=== PATIENT | female | born 1965 | race Caucasian/White ===

== ENCOUNTER 2017-08-04 18:27 | Emergency (ER) | payer MEDICARE, MEDICAID, SELFPAY ==
[2017-08-04 18:28] VITALS: BP 119/92; PULSE 74; RESP 18; TEMP 37.2; O2SAT 96; BMI 33.0
--- NOTE | 2017-08-04 18:58 | RAD_ITS ---
STUDY: X-RAY CHEST REASON FOR EXAM: Female, 51 years old. Cough TECHNIQUE: Single frontal view COMPARISON: July 09, 2017 FINDINGS: The lungs are expanded. There is mild left basilar atelectasis. Normal size heart. Normal mediastinum and ilda. Normal visualized pulmonary arteries. Normal visualized aortic arch and descending thoracic aorta. Normal visualized thoracic spine. Surgical fusion of lower cervical levels. Normal visualized ribs, clavicles, and shoulders. There is no demonstrated abnormality of the visualized soft tissue structures of the upper abdomen. RAD/Chest 1 View (Portable) IMPRESSION: Mild left basilar atelectasis. Electronically Signed: Rodney Castillo DO at 19:31 EST Tel [phone], Service support ,
--- NOTE | 2017-08-04 18:58 | EKG12_ITS ---
Test Reason : Blood Pressure : / mmHG Vent. Rate : 064 BPM Atrial Rate : 064 BPM P-R Int : 172 ms QRS Dur : 068 ms QT Int : 394 ms P-R-T Axes : 071 012 041 degrees QTc Int : 406 ms Normal sinus rhythm Low voltage QRS Borderline ECG Confirmed by EZEQUIEL LANDIS, ION ([id number]), editor magazine [employer] ([id number]) on 08/08/2017 3:13:20 PM Referred By: BENJAMIN Confirmed By:ION NIEVES MD
--- NOTE | 2017-08-04 19:09 | ED.VISSUMM ---
- ER Visit Summary Date of Service: 08/04/17 Chief Complaint: [] Seen at urgent care concern for pneumonia History of Present Illness: The patient is a 51 F [] the patient has a history of asthma, she was diagnosed with the flu and required admission for influenza related bronchospasm symptoms, she indicates this was a few weeks ago around [place], she never really recovered from the coughing and the wheezing. She was seen at a local urgent care center she was noted to have wheezing by a nurse practitioner who saw her and then she was sent to the emergency department for concern of pneumonia, the patient's cough has been productive of mucus for weeks, she has had no fevers she is able to eat and drink, she apparently ran out of her inhaler and was using her steroid inhaler not her rescue inhaler. She has no history of IA PE DVT she does have frequent flares of asthma when we are in the midst of flu epidemic as we are now Physical Examination: [] Vital signs are within normal range her pulse ox is 97% on room air she has a harsh dry cough here her nose is congested her throat is clear her lungs show diffuse wheezing heart tones are unremarkable abdomen soft nontender upper lower extremities unremarkable when she is not coughing clinically she looks well, again the cough here is nonproductive Test Results: [] Emergency Department Course and Treatment: [] Given her complaints evaluation, her labs are all unremarkable white count normal her pulse ox remained 97%, her chest x-ray per radiology shows very questionable subtle lingular finding that could be pneumonia versus atelectasis. On reevaluation she is much better now she is afebrile has a normal white count normal pulse ox she is really been coughing since June she has been on multiple different antibiotics. She feels better she wants to go home but she does not have an inhaler. I have given her a dose of MDI inhaler here, she will be discharged with that inhaler, she was given IV Solu-Medrol, she will be given Mucinex Levaquin and she will follow-up with her family doctors tomorrow the next and return for symptoms change and again she is feeling better and wants to go home and wants to be managed as an outpatient Treatment Plan: [] Disposition: [] Home stable Impression: [] Harsh cough for months possible lingular pneumonia This note was generated with [employer] dictation software. It may contain incorrect words, spelling, and punctuation that were not noted in review of the chart prior to signing ED Disposition - Plan for ED Patient: Chief Complaint: Shortness of Breath Referrals: Florecita Medrano MD [Primary Care Provider] -
[2017-08-04] MEDS: MethylPREDNISolone 125 MG/2 ML Vial IV (19:19)
[2017-08-04] MEDS: Acetaminophen/Codeine #3 Tablet 2 TABLET PO (19:19)
[2017-08-04] MEDS: Ipratropium/Albuterol Sulfate 3 ML AMPUL.NEB INHALATION (19:35)
[2017-08-04 19:39] VITALS: PULSE 75; RESP 16
[2017-08-04 19:40] LABS: Absolute Lymphocyte Count 2.43 X10^3/ul (0.83-4.51); Basophil# 0.01 X10^3/uL; Basophil% 0.1 % (0-1); Eosinophil# 0.23 X10^3/uL; Eosinophils% 3.2 % (0-5); Hematocrit 41.3 % (37-47); Hemoglobin 13.5 g/dl (12.0-15.0); Lymphocyte # 2.43 X10^3/ul (4.0); Lymphocyte % 33.7 % (19-41); Mean Corp Hgb Conc 32.7 g/gl (32-36); Mean Corpuscular Hgb 30.2 pg (27.0-32.0); Mean Corpuscular Volume 92.4 fL (81-99); Mean Platelet Vol. 9.5 fl (6.2-12.0); Monocyte# 0.48 X10^3/uL; Monocyte% 6.7 % (0-10); Neutrophil # 4.04 X10^3/uL (2.7-7.7); POSITIVE COUNT NO; POSITIVE DIFFERENTIAL NO; POSITIVE MORPHOLOGY NO; Platelet Count 260 K/mm3 (150-450); RBC Distribution Width CV 13.5 % (11.6-14.6); RBC Distribution Width SD 44.6 fl (35.1-43.9); Red Blood Count 4.47 M/mm3 (4.2-5.4); White Blood Count 7.2 K/mm3 (4.4-11.0)
[2017-08-04 19:47] LABS: Anion Gap 7 (5-15); BUN 7 mg/dL (7-18); BUN/Creat Ratio 6.7 RATIO (10-20); Chloride 112 mmol/L (98-107); Creatinine, Serum 1.04 mg/dL (0.55-1.02); EST Glomerular Filtration Rate 60 mL/min (>60); Est Glom Filt Rate - Afr Amer 72 mL/min (>60); Estimated Creatinine Clearance 61.26 ml/min; Glucose 77 mg/dL (70-110); Potassium 4.1 mmol/L (3.5-5.1); Sodium Level 143 mmol/L (136-145)
--- NOTE | 2017-08-04 21:36 | ED.DEP ---
ED Disposition - Plan for ED Patient: Chief Complaint: Shortness of Breath Diagnosis: Asthma Instructions: ED Bronchitis Asthmatic, ED Reactive Airway Disease, ED Upper Resp Infec Abx Tx, ED Pneumonia Adult Prescriptions: Albuterol Inhaler [Ventolin Hfa] 1 - 2 puff INHALATION Q4H PRN PRN #1 inhaler PRN Reason: Wheezing Levofloxacin [Levaquin] 750 mg PO DAILY #7 tab Guaifenesin [Mucinex] 1,200 mg PO BID #14 tbmp.12hr Referrals: Florecita Medrano MD [Primary Care Provider] -
[2017-08-04] MEDS: levoFLOXacin 750 MG Tablet PO (22:11)
[2017-08-04 22:14] VITALS: BP 128/78; PULSE 76; RESP 18; O2SAT 95
== END 2017-08-04 22:15 | disposition home or self-care (01) ==
LOC: ED 19:18
PROVIDERS: Emergency Provider Emergency Medicine; Family Provider Internal Medicine; PCP Internal Medicine
DX: R05 Cough (principal); J45.909 Unspecified asthma, uncomplicated; Z79.899 Other long term (current) drug therapy; R06.02 Shortness of breath
CPT/HCPCS: 71045; 80048; 83880; 84484; 85025; 93005; 94640; 96374; 99285; J7030; J7040; A4216

== ENCOUNTER → 2017-08-29 15:12 | Outpatient (CLI) | payer MEDICARE, MEDICAID, SELFPAY ==
--- NOTE | 2017-08-29 15:16 | RAD_ITS ---
STUDY: X-RAY - LEFT KNEE REASON FOR EXAM: Female, 51 years old. Left knee pain. TECHNIQUE: Follow-up view(s) of the knee. COMPARISON: None. FINDINGS: Normal visualized distal femur. Normal visualized proximal tibia and fibula. Normal proximal tibiofibular articulation. There is mild arthrosis of the medial compartment. Normal lateral femorotibial compartment. Normal patellofemoral articulation. The soft tissue structures are unremarkable. RAD/Knee 4 or More Views IMPRESSION: Mild medial compartmental arthrosis. Electronically Signed: Keshawn Balderas MD at 16:45 EST , Service support ,
== END ==
PROVIDERS: Family Provider Internal Medicine; PCP Internal Medicine; Visit Provider Orthopaedic Surgery
DX: M25.562 Pain in left knee (principal)
CPT/HCPCS: 73564

== ENCOUNTER → 2017-09-12 13:11 | Outpatient (CLI) | payer MEDICARE, MEDICAID, SELFPAY ==
--- NOTE | 2017-09-12 13:13 | MRI_ITS ---
STUDY: MRI LEFT KNEE REASON FOR EXAM: Knee pain, swelling and instability for more than 3 months. Evaluate for ACL tear. TECHNIQUE: Standardized fat and water weighted pulse sequences were obtained in all 3 orthogonal planes. COMPARISON: Radiographs 08/29/2017. FINDINGS: There is mild intrasubstance myxoid degeneration of the posterior horn of the medial meniscus without discrete medial meniscal tear. Normal hyaline cartilage of the medial femorotibial compartment. There is very mild subchondral bone edema of the medial femoral condyle (T2 coronal images 13-16), a stress phenomenon. Normal medial collateral ligamentous complex (MCL). Normal distal semimembranosus, gracilis and semitendinosus tendons. Normal lateral meniscus. Normal hyaline cartilage of the lateral femorotibial compartment. Normal lateral femoral condyle and tibial plateau. Normal proximal tibiofibular articulation. Normal lateral collateral (fibular) ligament. Normal popliteus tendon. Normal biceps femoris tendon. Normal anterior cruciate ligament (series 7 images 10-13). Normal posterior cruciate ligament (PCL). Normal congruent patellofemoral articulation. Normal hyaline cartilage of the patellofemoral compartment. Normal medial and lateral patellar retinaculum. Normal visualized quadriceps tendon. Normal patellar tendon. Normal Hoffa's fat pad. There is a small joint effusion. There is an intra-articular body posterior to the root of the posterior horn of the medial meniscus (T2 axial images 16, 17) measuring 0.8 cm in transverse dimension. There is a small ganglion cyst adjacent to the origin of the lateral gastrocnemius (T2 sagittal image 17) measuring 0.9 cm in length. There is mild edema in the anterior subcutis adipose space. The otherwise visualized osseous structures are unremarkable. MRI/Lower Ext Joint Only (Routine) IMPRESSION: Very mild subchondral bone edema of the medial femoral condyle, a stress phenomenon. Small joint effusion. Posterior intra-articular body. Small ganglion cyst adjacent to the origin of the lateral gastrocnemius. No demonstrated anterior cruciate ligament tear. Electronically Signed: Jac Sanchez MD at 15:09 EST Tel , Service support ,
== END ==
PROVIDERS: Family Provider Internal Medicine; PCP Internal Medicine; Visit Provider Orthopaedic Surgery
DX: S83.512A Sprain of anterior cruciate ligament of left knee, initial encounter (principal); X58.XXXA Exposure to other specified factors, initial encounter; Y93.9 Activity, unspecified; Y92.9 Unspecified place or not applicable; Y99.9 Unspecified external cause status
CPT/HCPCS: 73721

== ENCOUNTER → 2017-09-28 16:53 | Outpatient (CLI) | payer MEDICARE, MEDICAID, SELFPAY ==
[2017-09-28 17:43] LABS: Amphetamine Urine VISTA NEGATIVE (<1000 ng/mL); Barbiturate Urine VISTA NEGATIVE (< 200 ng/mL); Benzodiazepine Urine VISTA NEGATIVE (< 200 ng/mL); Cocaine Urine VISTA NEGATIVE (< 300 ng/mL); Ecstacy Urine VISTA NEGATIVE (< 500 ng/mL); Methadone Urine VISTA NEGATIVE (< 300 ng/mL); PCP Urine VISTA NEGATIVE (< 25 ng/mL); THC Urine VISTA NEGATIVE (< 50 ng/mL); Vista UDS pH Range 5
== END ==
PROVIDERS: Family Provider Internal Medicine; PCP Internal Medicine; Visit Provider Anesthesiology Pain Medicine
DX: F11.20 Opioid dependence, uncomplicated (principal)
CPT/HCPCS: 80307

== ENCOUNTER 2017-10-18 05:45 | Day surgery (SDC) | payer MEDICARE, MEDICAID, SELFPAY ==
[2017-10-18 06:29] VITALS: BP 111/63; PULSE 78; RESP 16; TEMP 36.3; O2SAT 98; BMI 33.0
[2017-10-18] MEDS: Ketorolac 15 MG/ML Vial IV (06:55)
--- NOTE | 2017-10-18 07:00 | PCM.DC.ORTHO ---
Discharge Activity: Return to Normal Activity, May not drive while taking narcotic pain medications., May Shower, Use Crutches, - - 50% weightbearing ?6 weeks. May shower in (days): 2 May resume sexual activity in: 6 weeks Ice area for (Minutes): 20 Weight Bearing Status: Partial weight bearing Keep extremity elevated above heart level: Left Leg Additional Activity Instructions:: May flex and extend knee 3 times per day. Brace otherwise 24 7. 50% weightbearing. May remove brace to shower. Performed quad sets and straight leg raises in brace. Call your doctor if your incision/area has: Continuous Slow Oozing, Sudden Increased Bleeding, Increased Pain/ Swelling, Increased Redness, Foul Smelling Discharge, Swelling at the incision site Call your doctor if you observe: Fever of 101 or Higher, Coldness, Increased Pain, Numbness or Tingling, Change in Color, Inability to urinate, Inability to have a bowel movement, Using more than one pad per hour, Shortness of breath, Dizziness, Fainting spells, Swelling in the ankles, Chest pain, Prolonged hiccoughing, Increased palpitations (irregular heartbeat), Calf discomfort, Uncontrolled pain Suture Line Care: Avoid Pulling/Pushing, Avoid Pinching/Bending Change Dressing in (Days):: 2 Remove Dressing in (days):: 2 Cleanse incision/area with: Soap & Water Additional Dressing/Incision Instructions:: Remove dressing to shower. Replace Marcos wrap when finished. Wash hands prior to touching wounds at any time. Allergies/Adverse Reactions: Allergies hydromorphone Allergy (Verified 10/12/17 09:03) Anaphylaxis Penicillins [PCN] Allergy (Verified 10/12/17 09:03) Anaphylaxis risperidone [From Risperdal] Allergy (Verified 10/12/17 09:03) Unknown codeine Adverse Reaction (Verified 10/12/17 09:03) Upset Stomach Medications to take at Discharge Quetiapine Fumarate [Seroquel] 300 mg PO QHS 08/31/13 Budesonide/Formoterol Fumarate [Symbicort 160-4.5 Mcg Inhaler] 1 puff IH BID 01/04/17 Gabapentin [Neurontin] 300 mg PO BID 01/04/17 Oxycodone [Oxyir] 5 mg PO BID 01/04/17 Tizanidine HCl [Zanaflex] 4 mg PO BID 01/04/17 morphine SR tablet [Ms Contin] 15 mg PO TID 01/04/17 Albuterol Inhaler [Ventolin Hfa] 1 - 2 puff INHALATION Q4H PRN PRN #1 inhaler 08/04/17 diazepam 10 mg tablet See Label Instructions PO .COMPLEX #1 tab 09/07/17 Guaifenesin [Mucinex] 1,200 mg PO PRN PRN 10/12/17 Clindamycin [Cleocin] 300 mg PO TID #30 cap 10/18/17 Docusate Sodium [Colace] 100 mg PO BID PRN PRN #10 cap 10/18/17 Oxycodone HCl/Acetaminophen [Percocet 5/325] 1 - 2 tablet PO Q4H PRN PRN #60 tablet 10/18/17 proMETHazine tablet [Phenergan] 25 mg PO Q4H PRN PRN #10 tab 10/18/17 The following prescriptions were given: Oxycodone HCl/Acetaminophen [Percocet 5/325] 1 - 2 tablet PO Q4H PRN PRN #60 tablet PRN Reason: Pain proMETHazine tablet [Phenergan] 25 mg PO Q4H PRN PRN #10 tab PRN Reason: Nausea Docusate Sodium [Colace] 100 mg PO BID PRN PRN #10 cap PRN Reason: Constipation Clindamycin [Cleocin] 300 mg PO TID #30 cap Primary Care Physician: Florecita Medrano MD [Primary Care Provider] - Please Follow Up With: Nando Torrez DO When: call [facility] for appt for 2 weeks Proposed Discharge Date: 10/18/17
[2017-10-18] MEDS: Clindamycin 900 MG/50 ML BAG 75 MG IV (07:15)
--- NOTE | 2017-10-18 08:05 | PCM.IMDPSTOP ---
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
--- NOTE | 2017-10-18 08:07 | PCM.OPRPT ---
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 Patient had an MRI that showed some mild chondromalacia but had exam that was concerning for partial ACL disruption. Having failed conservative measures patient elected for a diagnostic knee scope possible chondroplasty and partial synovectomy and evaluation of the ACL for possible reconstruction based on degree of injury pattern if identified intraoperatively. will be counseling sent patient agreed to the aforementioned procedure. She is met in the holding area over the left lower extremity was marked and identified by the with surgeon. Patient was taken to the operating room in satisfactory condition with somewhat to place to identify patient operative procedure and limb. Patient received 900 clindamycin due to penicillin allergy. She had a well-placed tourniquet left proximal thigh. She was then prepped and draped in usual fashion. Due to history of a PE in the past I elected to not use tourniquet control on her at this point. Patient's examination her anesthesia again showed a 2a-2b edwina examination and probably a low grade PCL change consistent with perhaps a low grade 1 PCL injury in the past. Otherwise pay for it patient was not able to be pivot shift. At that point time I have low suspicion for ACL injury. We proceed with a diagnostic scope. The patient's anterolateral portal was established and we entered the suprapatellar pouch. A superior lateral outflow portal was created. Patient showed no obvious return effusion. She had just some mild fissure formation to the central ridge of the patella. But the patella was well centered and tracked accordingly through gentle range of motion. She had grade II chondromalacia to the central trochlea but no loose fragments. We then moved in the lateral gutter she had no loose bodies and normal popliteal hiatus. Moving the medial gutter the patient showed some plical band formation and a hypertrophic anterior synovial tissue with some erythema. That point time an anteromedial working portal was established. Diagnostic scope again showed the patient's medial meniscus to be pristine. She had grade II chondromalacia to the central aspect of the tibial plateau just some mild softening across the medial femoral condyle through symmetric range of motion. She had no not stenosis. The anterior medial bundle of the ACL was pristine with good tension at 0 30 and 90?. She had a small tear to the posterior lateral bundle at best. Otherwise she had good continuity overall fibers. The ACL was well synovialized. The PCL was also well synovialized and appear to be within normal limits. The leg was then placed in a [id number] position for evaluation lateral compartment. Again the patient had a normal posterior lateral corner she had a normal popliteal hiatus and the meniscus was otherwise pristine. Patient had low-grade chondromalacia to the lateral compartment to the tibial plateau with again grade 2 fissuring mild. Just some mild softening to the femoral condyle. At that point time mechanical shaver and vapor introduced performed an anterior synovectomy and controlled bleeding with vapor cautery. Scope was then retracted portal sites are closed with 3-0 nylon. She was dressed with Xeroform 4 x 4's Kerlix roll ABD and Marcos wrap. And returned to recovery in satisfactory condition. There is no drains or complications. We had no implants. Patient be weightbearing as tolerated while the knee arthroscopy protocol from [facility]. I was scrubbed and available time during our procedure. If you require any further information please do not hesitate contact. special service officer: none Type of Anesthesia:: General Specimen's removed: None Estimated Blood Loss (mL): 10 - Admit VTE Documentation VTE Present on Admission: No VTE Mechan Device Prophylaxis: SCD's, Knee High WIN Hose VTE Pharm Prophylaxis ordered?: Yes
[2017-10-18 08:15] VITALS: BP 111/63; BP 138/87; PULSE 70; RESP 18; O2SAT 92
[2017-10-18 08:17] VITALS: BP 111/63; BP 158/104; PULSE 75; RESP 18; TEMP 35.5; O2SAT 96
[2017-10-18 08:30] VITALS: BP 111/63; BP 123/87; PULSE 69; RESP 18; TEMP 35.8; O2SAT 96
[2017-10-18 08:44] VITALS: BP 111/63; PULSE 68; RESP 18; TEMP 36; O2SAT 94
[2017-10-18] MEDS: oxyCODONE 5 MG Tablet 10 MG PO (09:08)
[2017-10-18 10:45] VITALS: BP 111/63
== END 2017-10-18 10:45 | disposition home or self-care (01) ==
LOC: SDC 05:46 → AC 05:47
PROVIDERS: Family Provider Internal Medicine; PCP Internal Medicine; Visit Provider Orthopaedic Surgery
PROC: (CPT 29888; principal; 2017-10-18 06:55)
DX: M23.92 Unspecified internal derangement of left knee (principal); M94.262 Chondromalacia, left knee; M67.52 Plica syndrome, left knee; S83.282A Other tear of lateral meniscus, current injury, left knee, initial encounter; X58.XXXA Exposure to other specified factors, initial encounter; Y93.9 Activity, unspecified; Y92.9 Unspecified place or not applicable; Y99.9 Unspecified external cause status; G35 Multiple sclerosis; J44.9 Chronic obstructive pulmonary disease, unspecified; F31.9 Bipolar disorder, unspecified; F41.9 Anxiety disorder, unspecified; Z88.0 Allergy status to penicillin; F17.200 Nicotine dependence, unspecified, uncomplicated; Z79.82 Long term (current) use of aspirin; Z79.891 Long term (current) use of opiate analgesic; Z79.899 Other long term (current) drug therapy; Z86.718 Personal history of other venous thrombosis and embolism; Z86.711 Personal history of pulmonary embolism; Z90.710 Acquired absence of both cervix and uterus
CPT/HCPCS: 29875; J7120; J2405

== ENCOUNTER 2018-05-19 14:01 | Day surgery (SDC) | payer MEDICARE, MEDICAID, SELFPAY ==
[2018-05-19] VITALS (7 sets, daily range): BP systolic 111–124; BP diastolic 71–82; PULSE 69–93; RESP 16; TEMP 35.8–37.2; O2SAT 92–96; BMI 37.3
--- NOTE | 2018-05-19 15:15 | RAD_ITS ---
STUDY: X-RAY - CERVICAL SPINE REASON FOR EXAM: Female, 52 years old. Cervical block. Bilateral C3-C6 TECHNIQUE: 5 view(s) of the cervical spine were obtained. COMPARISON: None FINDINGS: Intraoperative spot fluoroscopy images were obtained. Extensive C-spine hardware is noted. Please see performing physician's report for full details. Total fluoroscopy time was 7.4 seconds RAD/Cerv Spine 4 or 5 Views IMPRESSION: As above Electronically Signed: Pérez Hanna DO at 18:33 EDT Tel , Service support ,
[2018-05-19] MEDS: Bupivacaine Mpf 0.5% 30 ML VIAL (15:20)
[2018-05-19] MEDS: Triamcinolone Acetonide 40 MG/ML Vial (15:20)
== END 2018-05-19 16:20 | disposition home or self-care (01) ==
LOC: SDC 14:01 → AC 14:03
PROVIDERS: Family Provider Internal Medicine; PCP Internal Medicine; Referring Provider Anesthesiology Pain Medicine; Visit Provider Anesthesiology Pain Medicine
PROC: 3E0U3BZ Introduction of Anesthetic Agent into Joints, Percutaneous Approach (ICD-10-PCS; CPT 64490; principal; 2018-05-19 15:15)
DX: M47.892 Other spondylosis, cervical region (principal); M96.1 Postlaminectomy syndrome, not elsewhere classified; J44.9 Chronic obstructive pulmonary disease, unspecified; F17.200 Nicotine dependence, unspecified, uncomplicated; F31.9 Bipolar disorder, unspecified; Z79.891 Long term (current) use of opiate analgesic; Z79.899 Other long term (current) drug therapy
CPT/HCPCS: 64491; 64492; 64490; 72050; J7120; J3490

== ENCOUNTER 2018-10-01 11:27 | Emergency (ER) | payer MEDICARE, MEDICAID, SELFPAY ==
[2018-10-01 11:29] VITALS: BP 166/83; PULSE 79; RESP 22; TEMP 36.4; O2SAT 99; BMI 35.5
[2018-10-01 11:38] VITALS: BP 138/81; PULSE 78; RESP 18; O2SAT 97
--- NOTE | 2018-10-01 11:48 | CT_ITS ---
STUDY: CTA CHEST REASON FOR EXAM: Female, 52 years old. Left-sided rib pain history of PE RADIATION DOSAGE (If Supplied By Facility): CTDIvol = ( 16.13 ) mGy, DLP = ( 537.96 ) mGycm TECHNIQUE: The examination was performed with the intravenous administration of Isovue 370 100 IV. Post-processing of the angiographic images was performed, with multiplanar reformation and 3D reconstruction. Individualized dose optimization techniques were used for this CT. COMPARISON: 07/09/2017 FINDINGS: Normal enhancement of the main pulmonary artery and right and left pulmonary arteries. Normal enhancement of the bilateral peripheral pulmonary arteries. There is no demonstrated pulmonary embolism. Normal thoracic aorta and visualized great vessels. There is no demonstrated aortic dissection. The heart size is stable. Stable mild pericardial thickening. There are visualized mediastinal lymph nodes, which are within normal size limits, and with normal morphology. Normal hilar regions. Normal visualized trachea and bronchi. There are mild centrilobular emphysematous changes of the upper lungs. There are bandlike parenchymal changes most consistent with atelectasis of the bilateral lungs. Mild amount of bronchovascular micronodularity (new) of the right more than left lower lobe. Similar discrete nodules measuring up to 5 mm (stable since 2016). No suspicious, enlarging discrete pulmonary nodule is seen, however. Normal pleura. Normal chest wall structures. Normal osseous structures. Normal visualized upper abdomen. CT/CTA Chest W/WO Contrast IMPRESSION: 1. No central or segmental pulmonary embolism. 2. Bronchovascular markings are nodular in the right more than left lower lobe, new since the prior study that is most typically related to pneumonitis/infection. Electronically Signed: Sedrick Spence MD at 13:01 EDT , Service support ,
--- NOTE | 2018-10-01 11:53 | ED.DCSUM_ITS ---
- ER Visit Summary Date of Service: 10/01/18 Chief Complaint: Left chest wall pain History of Present Illness: The patient is a 52 F who presents emergency department with left-sided chest wall pain. She states the symptoms began last Tuesday and have worsened. She notes it is worse with touch and with coughing. She states that when she breathes she feels like her ribs are pushing on something. She states she has a history of pulmonary embolism and this feels similar. Not on blood thinners currently. She is in pain management for her chronic neck pain and takes morphine OxyIR Lyrica as well as muscle relaxants. She states that she spoke with pain management earlier in the week and they gave her an order for x-rays she did not go on Tuesday and get them. She was going to go on Tuesday. Last night she states that she was worried she was going to in her sleep but did not call the ambulance because she did not want to bother them. She states that this morning she got up went to [facility] and now comes to the emergency department. She states that this however has become a medical emergency because she has pushed the limit of survival. Physical Examination: Afebrile vital signs stable Gen: Well-nourished well-developed Head: Normocephalic atraumatic Eyes: Perrl EOMI ENT: TMs clear no rhinorrhea moist mucous membranes Neck: Supple no lymphadenopathy no JVD nontender CVS: Regular rate rhythm no murmurs normal S1-S2 Respiratory: No distress clear to auscultation bilaterally reproducible chest wall tenderness from the left lower rib angles anteriorly to the costochondral junction. There is no vesicular rash noted Abdomen: Soft nontender nondistended normal bowel sounds no masses Back: Nontender Extremity: Nontender no edema Skin: Normal color no rash Neuro: alert orientated ?3 CN II-XII intact normal strength sensation reflexes gait cerebellar Psych: Normal affect normal mood Test Results: Creatinine 1.03. CT of the chest was negative for pulmonary embolism. I suspect with the patient having a viral respiratory illness about 1 week ago this could be the residual changes we see on the CT. I do not believe the patient has evidence of pneumonia. Emergency Department Course and Treatment: Home. She should use a pillow to stabilize her chest wall with movement and cough. Follow-up with her primary care doctor. Impression: 1. Left chest wall strain This note was generated with [employer] dictation software. It may contain incorrect words, spelling, and punctuation that were not noted in review of the chart prior to signing ED Disposition - Plan for ED Patient: Disposition: Home or Assisted Living Instructions: ED Strain Chest Wall Referrals: Florecita Medrano MD [Primary Care Provider] - 1 Week if not improving
[2018-10-01 12:22] LABS: Anion Gap 2 (5-15); BUN 10 mg/dL (7-18); BUN/Creat Ratio 9.7 RATIO (10-20); Calcium,Total 8.7 mg/dL (8.5-10.1); Chloride 108 mmol/L (98-107); Creatinine, Serum 1.03 mg/dL (0.55-1.02); EST Glomerular Filtration Rate 60 mL/min (>60); Est Glom Filt Rate - Afr Amer 73 mL/min (>60); Estimated Creatinine Clearance 61.17 ml/min; Glucose 74 mg/dL (74-106); Potassium 3.8 mmol/L (3.5-5.1); Sodium Level 138 mmol/L (136-145)
[2018-10-01 12:49] VITALS: BP 141/87; PULSE 75; RESP 18; TEMP 36.4; O2SAT 96
[2018-10-01 13:00] VITALS: BP 143/81; PULSE 72; RESP 19; TEMP 36.6; O2SAT 97
[2018-10-01 13:33] VITALS: BP 148/81; PULSE 75; RESP 17; O2SAT 97
== END 2018-10-01 13:34 | disposition home or self-care (01) ==
PROVIDERS: Emergency Provider Emergency Medicine; Family Provider Internal Medicine; PCP Internal Medicine
DX: S29.011A Strain of muscle and tendon of front wall of thorax, initial encounter (principal); X58.XXXA Exposure to other specified factors, initial encounter; Y93.9 Activity, unspecified; Y92.9 Unspecified place or not applicable; J44.9 Chronic obstructive pulmonary disease, unspecified; E66.9 Obesity, unspecified; Z68.35 Body mass index [BMI] 35.0-35.9, adult; Z86.711 Personal history of pulmonary embolism; Z79.899 Other long term (current) drug therapy
CPT/HCPCS: 71275; 80048; 99283; Q9967; A4216

== ENCOUNTER 2018-11-03 09:53 | Day surgery (SDC) | payer MEDICARE, MEDICAID, SELFPAY ==
[2018-11-03] VITALS (7 sets, daily range): BP systolic 106–121; BP diastolic 53–84; PULSE 70–76; RESP 16; TEMP 36–36.7; O2SAT 93–99; BMI 37.5
--- NOTE | 2018-11-03 11:15 | RAD_ITS ---
PROCEDURE: Epidural blocks bilateral C3-5. DATE OF EXAMINATION: May 19, 2018. INDICATION: Female, 52 years old. Pain. PHYSICIAN: Darreli FLUOROSCOPY TIME (if supplied): (0:05) minutes/seconds RADIATION DOSAGE (If Supplied By Facility): CTDIvol = ( ) mGy, DLP = ( ) mGycm PROCEDURE/TECHNIQUE Fluoroscopy services provided for clinical procedure. Please refer to operating physician's procedure note for additional detail. 5., Intraprocedural, fluoroscopic spot images of the cervical spine. There is no significant incidental finding. RAD/Cerv Spine 2 or 3 Views IMPRESSION: Fluoroscopy services provided for clinical procedure. Please refer to operating physician's procedure note for additional detail. 5., Intraprocedural, fluoroscopic spot images of the cervical spine. There is no significant incidental finding Comment: Fluoroscopy services provided for clinical procedure. Please refer to operating physician's procedure note for additional detail. Fluoroscopy time 5 seconds. Electronically Signed: Denis Tracy MD at 8:09 EDT , Service support ,
[2018-11-03] MEDS: Triamcinolone Acetonide 40 MG/ML Vial (11:50)
[2018-11-03] MEDS: Bupivacaine 0.25% 30 ML Vial (11:50)
== END 2018-11-03 13:11 | disposition home or self-care (01) ==
LOC: SDC 09:53 → AC 09:55
PROVIDERS: Family Provider Internal Medicine; PCP Internal Medicine; Referring Provider Anesthesiology Pain Medicine; Visit Provider Anesthesiology Pain Medicine
PROC: 3E0U3BZ Introduction of Anesthetic Agent into Joints, Percutaneous Approach (ICD-10-PCS; CPT 64490; principal; 2018-11-03 11:10)
DX: M47.812 Spondylosis without myelopathy or radiculopathy, cervical region (principal); M47.892 Other spondylosis, cervical region; J45.909 Unspecified asthma, uncomplicated; G35 Multiple sclerosis; F31.9 Bipolar disorder, unspecified; F17.200 Nicotine dependence, unspecified, uncomplicated; R01.1 Cardiac murmur, unspecified; Z98.1 Arthrodesis status; Z79.891 Long term (current) use of opiate analgesic; Z79.899 Other long term (current) drug therapy
CPT/HCPCS: 64491; 64490; 72040; J7120

== ENCOUNTER 2019-04-19 12:09 | Day surgery (SDC) | payer MEDICARE, MEDICAID, SELFPAY ==
[2018-11-03 10:20] VITALS: BMI 37.5
[2019-04-19 12:46] VITALS: PULSE 83; RESP 16; TEMP 36.8; O2SAT 95; BMI 37.1
[2019-04-19] MEDS: Lactated Ringers 1,000 ML 30 ML IV (13:00)
--- NOTE | 2019-04-19 13:15 | RAD_ITS ---
STUDY: X-RAY - CERVICAL SPINE REASON FOR EXAM: Female, 53 years old. BILAT CERVICAL FACET BLOCK C3-C5 TECHNIQUE: 6 C-arm views. 8.9 seconds fluoroscopy time. COMPARISON: None FINDINGS: 6 Limited [id number] C-arm images show a couple needle placements in the right and left cervical spine, and evidence of previous extensive cervical spine fixation. Correlate with procedure note. Electronically Signed: Germán Heredia MD at 16:02 EDT , Service support , RAD/Cerv Spine 4 or 5 Views
[2019-04-19] MEDS: Triamcinolone Acetonide 40 MG/ML Vial (14:19)
[2019-04-19] MEDS: Bupivacaine 0.25% 30 ML Vial (14:48)
[2019-04-19 15:02] VITALS: BP 127/78; BP 140/94; PULSE 82; RESP 16; TEMP 36.4; O2SAT 94
[2019-04-19 15:05] VITALS: BP 118/81; BP 140/94; PULSE 81; RESP 16; O2SAT 92
[2019-04-19 15:10] VITALS: BP 121/82; BP 140/94; PULSE 82; RESP 16; O2SAT 92
[2019-04-19 15:16] VITALS: BP 117/81; BP 140/94; PULSE 82; RESP 16; TEMP 36.4; O2SAT 92
[2019-04-19 15:38] VITALS: BP 140/94
== END 2019-04-19 15:39 | disposition home or self-care (01) ==
LOC: SDC 12:14 → AC 12:18
PROVIDERS: Family Provider Internal Medicine; PCP Internal Medicine; Referring Provider Anesthesiology Pain Medicine; Visit Provider Anesthesiology Pain Medicine
PROC: 3E0U3BZ Introduction of Anesthetic Agent into Joints, Percutaneous Approach (ICD-10-PCS; CPT 64490; principal; 2019-04-19 13:10)
DX: M47.812 Spondylosis without myelopathy or radiculopathy, cervical region (principal); M96.1 Postlaminectomy syndrome, not elsewhere classified; G89.4 Chronic pain syndrome; J44.9 Chronic obstructive pulmonary disease, unspecified; F17.200 Nicotine dependence, unspecified, uncomplicated; Z79.891 Long term (current) use of opiate analgesic; Z79.899 Other long term (current) drug therapy
CPT/HCPCS: 64491; 64490; 72050; J7120

== ENCOUNTER 2019-09-12 15:11 | Day surgery (SDC) | payer MEDICARE, MEDICAID, SELFPAY ==
[2019-09-12 15:42] VITALS: BP 115/61; PULSE 73; RESP 16; TEMP 36.3; O2SAT 94; BMI 35.9
[2019-09-12] MEDS: Lactated Ringers 1,000 ML 100 ML IV (16:00)
--- NOTE | 2019-09-12 16:49 | RAD_ITS ---
STUDY: X-RAY - CERVICAL SPINE REASON FOR EXAM: Female, 53 years old. CLOCK, CERVICAL, FACET C3-C5, BILATERAL TECHNIQUE: 5 intraoperative view(s) of the cervical spine were obtained. COMPARISON: April 19, 2019 FINDINGS: Stable fusion of C3-C7 similar to previous study. Bony details are limited. RAD/Cerv Spine 4 or 5 Views IMPRESSION: Stable surgical fusion of the cervical spine. Electronically Signed: Rodney Castillo DO at 23:07 EST Tel [phone], Service support ,
[2019-09-12] MEDS: Triamcinolone Acetonide 40 MG/ML Vial (17:00)
[2019-09-12] MEDS: Bupivacaine 0.25% 30 ML Vial (17:00)
[2019-09-12 17:09] VITALS: BP 115/91; BP 91/70; PULSE 70; RESP 16; TEMP 36.4; O2SAT 93
[2019-09-12 17:15] VITALS: BP 104/61; BP 115/91; PULSE 67; RESP 16; O2SAT 93
[2019-09-12 17:20] VITALS: BP 102/74; BP 115/91; PULSE 65; RESP 16; O2SAT 93
[2019-09-12 17:32] VITALS: BP 107/83; BP 115/91; PULSE 66; RESP 16; TEMP 36.2; O2SAT 96
[2019-09-12 17:55] VITALS: BP 115/91
== END 2019-09-12 18:00 | disposition home or self-care (01) ==
LOC: SDC 15:12 → AC 15:13
PROVIDERS: PCP Internal Medicine; Referring Provider Anesthesiology Pain Medicine; Visit Provider Anesthesiology Pain Medicine
PROC: 3E0U3BZ Introduction of Anesthetic Agent into Joints, Percutaneous Approach (ICD-10-PCS; CPT 64490; principal; 2019-09-12 16:25)
DX: M47.892 Other spondylosis, cervical region (principal); Z79.899 Other long term (current) drug therapy; J45.909 Unspecified asthma, uncomplicated; F17.200 Nicotine dependence, unspecified, uncomplicated; Z79.51 Long term (current) use of inhaled steroids; F31.9 Bipolar disorder, unspecified
CPT/HCPCS: 64490; 64491; 72050; J7120

== ENCOUNTER → 2019-09-25 16:39 | Outpatient (CLI) | payer MEDICARE, MEDICAID, SELFPAY ==
[2019-09-12 15:42] VITALS: BMI 35.9
[2019-09-25 17:40] LABS: Amphetamine Urine VISTA NEGATIVE (<1000 ng/mL); Barbiturate Urine VISTA NEGATIVE (< 200 ng/mL); Benzodiazepine Urine VISTA NEGATIVE (< 200 ng/mL); Cocaine Urine VISTA NEGATIVE (< 300 ng/mL); Ecstacy Urine VISTA NEGATIVE (< 500 ng/mL); Methadone Urine VISTA NEGATIVE (< 300 ng/mL); PCP Urine VISTA NEGATIVE (< 25 ng/mL); THC Urine VISTA NEGATIVE (< 50 ng/mL); Vista UDS pH Range 5
== END ==
PROVIDERS: PCP Internal Medicine; Referring Provider Anesthesiology Pain Medicine; Visit Provider Anesthesiology Pain Medicine
DX: F11.20 Opioid dependence, uncomplicated (principal)
CPT/HCPCS: 80307

== ENCOUNTER → 2020-01-09 14:59 | Outpatient (CLI) | payer MEDICARE, MEDICAID, SELFPAY ==
[2020-01-09 16:10] LABS: Amphetamine Urine VISTA NEGATIVE (<1000 ng/mL); Barbiturate Urine VISTA NEGATIVE (< 200 ng/mL); Benzodiazepine Urine VISTA NEGATIVE (< 200 ng/mL); Cocaine Urine VISTA NEGATIVE (< 300 ng/mL); Ecstacy Urine VISTA NEGATIVE (< 500 ng/mL); Methadone Urine VISTA NEGATIVE (< 300 ng/mL); PCP Urine VISTA NEGATIVE (< 25 ng/mL); THC Urine VISTA NEGATIVE (< 50 ng/mL); Vista UDS pH Range 5
== END ==
PROVIDERS: PCP Internal Medicine; Referring Provider Anesthesiology Pain Medicine; Visit Provider Anesthesiology Pain Medicine
DX: F11.20 Opioid dependence, uncomplicated (principal)
CPT/HCPCS: 80307

== ENCOUNTER 2020-01-09 20:59 | Emergency (ER) | payer MEDICARE, MEDICAID, SELFPAY ==
[2020-01-09 21:00] VITALS: BP 162/88; PULSE 82; RESP 20; TEMP 36.6; O2SAT 95; BMI 39.9
--- NOTE | 2020-01-09 21:13 | EKG12_ITS ---
Test Reason : DYSRHYTHMIA Blood Pressure : / mmHG Vent. Rate : 076 BPM Atrial Rate : 076 BPM P-R Int : 168 ms QRS Dur : 080 ms QT Int : 390 ms P-R-T Axes : 061 010 039 degrees QTc Int : 438 ms Normal sinus rhythm Low voltage QRS Borderline ECG When compared with ECG of 04-AUG-2017 19:33, Confirmed by ROSE LANDIS, USAMA ([id number]), newspaper managing editor BRENDEN MAYORGA ([id number]) on 01/11/2020 10:17:06 AM Referred By: OBDULIO Confirmed By:STEVE ROSE MD
--- NOTE | 2020-01-09 21:14 | ED.VIS.GEN ---
History of Present Illness Chief Complaint: Edema Informant: Patient Onset: Weeks Context: Gradual Onset Current Severity: Moderate Maximum Severity: Moderate Narrative: Patient presents secondary to increasing lower extremity edema and shortness of breath. She has noted a 20 pound weight gain over the past 3 weeks or so. She does not have a known history of congestive heart failure. She denies fever or chills. She denies cough. - Past Medical History (1) Asthma Status: Chronic (2) COPD (chronic obstructive pulmonary disease) Status: Chronic (3) Depression Status: Chronic (4) GERD (gastroesophageal reflux disease) Status: Chronic (5) Multiple sclerosis Status: Chronic (6) Opiate dependence Status: Chronic (7) PTSD (post-traumatic stress disorder) Status: Chronic (8) Pulmonary embolism Status: Chronic (9) S/P cervical spinal fusion Status: Chronic (10) Tobacco abuse Status: Chronic Past Medical History - Allergies and Home Meds Allergies/Adverse Reactions: Allergies hydromorphone Allergy (Verified 09/11/19 10:00) Anaphylaxis Penicillins [PCN] Allergy (Verified 09/11/19 10:00) Anaphylaxis risperidone [From Risperdal] Allergy (Verified 09/11/19 10:00) Unknown codeine Adverse Reaction (Verified 09/11/19 10:00) Upset Stomach Primary Care Physician: Florecita Medrano MD [Primary Care Provider] - Prior records reviewed: Yes Surgical History: appendectomy, cholecystectomy, hysterectomy, - - Tubal ligation, right knee surgery Smoking Status: Former smoker - Family History Maternal Family History: Family History (Last Reviewed 09/23/17 @ 13:08 by López Handley) Other Cancer Diabetes Hypertension Family History: Reports: Cancer Additional Family History: History of cancer, diabetes and blood clots. Review of Systems General: Denies: Chills, Fever Eyes: Denies: Visual changes - bilaterally ENT: Denies: Bilateral ear pain Cardiovascular: Denies: Chest pain Respiratory: Reports: Dyspnea, Orthopnea. Denies: Cough Gastrointestinal: Denies: Abdominal pain, Nausea, Vomiting, Diarrhea Musculoskeletal: Reports: Swelling, Extremity Pain Skin: Denies: Rash Neurological: Denies: Headache Hematologic: Denies: Easy bruising, Easy bleeding Allergy: Denies: Uticaria Physical Exam Vital Signs/Narrative: Vital Signs Temp Pulse Resp BP Pulse Ox 01/09/20 21:00 97.8 F 82 20 H 162/88 H 95 Inital Vital Signs reviewed: Yes General: Well nourished, Well developed Head: Normocephalic ENT: Moist mucous membranes Neck: Supple Cardiovascular: Regular rate, Regular rhythm Respiratory: No distress, CTA bilaterally Abdomen: Soft, Nontender Back: Nontender Extremities: Edema - 3+ edema bilaterally, symmetric Skin: Normal color Neurological: Alert, Oriented x3 Psychological: - - Anxious Diagnostic/Tx/Re-eval Impressions Venous Duplex 01/09/20 21:17 IMPRESSION: No demonstrated deep vein thrombosis. Electronically Signed: Janet Juarez MD at 23:17 EDT Tel , Service support , Chest X-Ray 01/09/20 21:37 IMPRESSION: No acute cardiopulmonary process. Electronically Signed: Janet Juarez MD at 22:10 EDT Tel , Service support , Chest CTA 01/09/20 22:25 IMPRESSION: No demonstrated pulmonary embolism or arterial dissection. Minimal bibasilar scarring and/or atelectasis. Mild emphysematous changes. Electronically Signed: Janet Juarez MD at 23:30 EDT Tel , Service support , 01/09/20 21:37 Chest 1 View (Portable) [RAD] Stat 01/09/20 22:25 CTA Chest W/WO Contrast [CT] Stat Laboratory Results 01/09/20 01/09/20 01/09/20 21:30 21:30 21:30 WBC 7.1 RBC 3.99 L Hgb 12.0 Hct 38.3 MCV 96.0 MCH 30.1 MCHC 31.3 L RDW Std Deviation 42.4 RDW Coeff of Reyes 12.2 Plt Count 218 MPV 9.5 Immature Gran % (Auto) 0.100 Neut % (Auto) 56.2 Lymph % (Auto) 30.6 [place] % (Auto) 11.2 H Eos % (Auto) 1.6 Baso % (Auto) 0.3 Absolute Neuts (auto) 4.0 Absolute Lymphs (auto) 2.16 Nucleated RBC % 0 D-Dimer Quant (PE/DVT) 1.18 H* Sodium 143 Potassium 3.9 Chloride 106 Carbon Dioxide 31.0 Anion Gap 6 BUN 7 Creatinine 1.12 H Estim Creat Clear Calc 55.01 Est GFR (MDRD) Af Amer 66 Est GFR (MDRD) Non-Af 54 L BUN/Creatinine Ratio 6.2 L Glucose 86 Calcium 9.1 Troponin I < 0.015 B-Natriuretic Peptide 01/09/20 21:30 WBC RBC Hgb Hct MCV MCH MCHC RDW Std Deviation RDW Coeff of Reyes Plt Count MPV Immature Gran % (Auto) Neut % (Auto) Lymph % (Auto) [place] % (Auto) Eos % (Auto) Baso % (Auto) Absolute Neuts (auto) Absolute Lymphs (auto) Nucleated RBC % D-Dimer Quant (PE/DVT) Sodium Potassium Chloride Carbon Dioxide Anion Gap BUN Creatinine Estim Creat Clear Calc Est GFR (MDRD) Af Amer Est GFR (MDRD) Non-Af BUN/Creatinine Ratio Glucose Calcium Troponin I B-Natriuretic Peptide 20.3 - EKG Initial EKG Interpretation: Sinus Rhythm - Sinus at 76 with no acute ischemia. - Medical Decision Making Test results are discussed with patient at bedside. This time cardiac and pulmonary work-up are unremarkable. There is no evidence of DVT in her leg. She will be given a prescription for her right knee which she recently reinjured. She is scheduled to see orthopedics 1 week from today. She will also be given 3 days of Lasix at home to try to help alleviate some of her swelling. She was instructed on elevating her legs in bed tonight above the level of her heart to help with swelling. ED Disposition - Plan for ED Patient: Disposition: Home or Assisted Living Diagnosis: Edema Instructions: ED Peripheral Edema, Bilateral Prescriptions: Furosemide [Lasix] 40 mg PO DAILY #4 tab Transmission Status: Pending to [facility]/pharmacy #[id number] Referrals: Florecita Medrano MD [Primary Care Provider] - 1 Week
--- NOTE | 2020-01-09 21:17 | US_ITS ---
STUDY: VENOUS DOPPLER ULTRASOUND - BILATERAL LOWER EXTREMITIES REASON FOR EXAM: Female, 54 years old. BILAT SWELLING AND BRUISING TECHNIQUE: Ultrasound evaluation of the deep vein system to include bronson-scale imaging and compression was performed. Bronson-scale imaging and Doppler sonographic evaluation, including duplex spectral analysis and qualitative color flow sonography, was performed. COMPARISON: None. FINDINGS: RIGHT LEG Common Femoral Vein: Normal compression, spontaneity and augmentation. Normal color Doppler. Common Femoral Vein/Greater Saphenous Junction: Normal compression Femoral Proximal: Normal compression. Femoral Middle: Normal compression, spontaneity and augmentation. Normal color Doppler. Femoral Distal: Normal compression. Popliteal Vein: Normal compression, spontaneity and augmentation. Normal color Doppler. Posterior Tibial Vein: Normal compression. Peroneal Vein: Normal compression. LEFT LEG Common Femoral Vein: Normal compression, spontaneity and augmentation. Normal color Doppler. Common Femoral Vein/Greater Saphenous Junction: Normal compression Femoral Proximal: Normal compression. Femoral Middle: Normal compression, spontaneity and augmentation. Normal color Doppler. Femoral Distal: Normal compression. Popliteal Vein: Normal compression, spontaneity and augmentation. Normal color Doppler. Posterior Tibial Vein: Normal compression. Peroneal Vein: Normal compression. US/Venous Duplex Imag/Roly Extrem IMPRESSION: No demonstrated deep vein thrombosis. Electronically Signed: Janet Juarez MD at 23:17 EDT Tel , Service support ,
--- NOTE | 2020-01-09 21:37 | RAD_ITS ---
STUDY: X-RAY CHEST REASON FOR EXAM: Female, 54 years old. BLE EDEMA, BRUISING, SHORTNESS OF BREATH TECHNIQUE: Single frontal view of the chest. COMPARISON: August 04, 2017 FINDINGS: There is no new focal consolidation. Normal size heart. Normal mediastinum and ilda. Normal visualized pulmonary arteries. Normal visualized aortic arch and descending thoracic aorta. Normal visualized thoracic spine. Normal visualized ribs, clavicles, and shoulders. There are postsurgical changes of the visualized cervical spine. There is no demonstrated abnormality of the visualized soft tissue structures of the upper abdomen. RAD/Chest 1 View (Portable) IMPRESSION: No acute cardiopulmonary process. Electronically Signed: Janet Juarez MD at 22:10 EDT Tel , Service support ,
[2020-01-09 21:44] LABS: Absolute Lymphocyte Count 2.16 X10^3/uL (0.83-4.51); Basophil# 0.02 X10^3/uL; Basophil% 0.3 % (0-1); Eosinophil# 0.11 X10^3/uL; Eosinophils% 1.6 % (0-5); Hematocrit 38.3 % (37-47); Lymphocyte # 2.16 X10^3/ul (4.0); Lymphocyte % 30.6 % (19-41); Mean Corp Hgb Conc 31.3 g/dL (32-36); Mean Corpuscular Hgb 30.1 pg (27.0-32.0); Mean Platelet Vol. 9.5 fl (6.2-12.0); Monocyte# 0.79 X10^3/uL; Monocyte% 11.2 % (0-10); NRBC Flagged by Analyzer 0 % (0-5); Neutrophil # 3.96 X10^3/uL (2.7-7.7); Neutrophil % 56.2 % (47-70); Platelet Count 218 K/mm3 (150-450); RBC Distribution Width CV 12.2 % (11.6-14.6); RBC Distribution Width SD 42.4 fl (35.1-43.9); Red Blood Count 3.99 M/mm3 (4.2-5.4); White Blood Count 7.1 K/mm3 (4.4-11.0)
[2020-01-09 22:02] LABS: Anion Gap 6 (5-15); BUN 7 mg/dL (7-18); BUN/Creat Ratio 6.2 RATIO (10-20); Calcium,Total 9.1 mg/dL (8.5-10.1); Chloride 106 mmol/L (98-107); Creatinine, Serum 1.12 mg/dL (0.55-1.02); EST Glomerular Filtration Rate 54 mL/min (>60); Est Glom Filt Rate - Afr Amer 66 mL/min (>60); Estimated Creatinine Clearance 55.01 ml/min; Glucose 86 mg/dL (74-106); Potassium 3.9 mmol/L (3.5-5.1); Sodium Level 143 mmol/L (136-145)
[2020-01-09 22:04] LABS: BNP,B-Type NATRIURETIC PEPTIDE 20.3 pg/mL (0-100)
[2020-01-09 22:14] LABS: D-Dimer Quantitative (DVT/PE) 1.18 FEU/ug/m (0.27-0.49)
--- NOTE | 2020-01-09 22:14 | ED.RN ---
d-dimer of 1.[address] minaya. verbalizes understanding
--- NOTE | 2020-01-09 22:25 | CT_ITS ---
STUDY: CTA CHEST REASON FOR EXAM: Female, 54 years old. SOB, BILATERAL EDEMA, 20 POUND WEIGHT GAIN, HX PE YEARS AGO, ELEVATED D-DIMER RADIATION DOSAGE (If Supplied By Facility): CTDIvol = ( 19.76 ) mGy, DLP = ( 571.54 ) mGycm TECHNIQUE: The examination was performed with the intravenous administration of IV 100mL Isovue-370. Post-processing of the angiographic images was performed, with multiplanar reformation and 3D reconstruction. Individualized dose optimization techniques were used for this CT. COMPARISON: October 01, 2018 FINDINGS: There are mild emphysematous changes present. There is a stable 2.6 mm subpleural nodule within the right upper lobe. There is minimal bibasilar scarring and/or atelectasis. Normal enhancement of the main pulmonary artery and right and left pulmonary arteries. Normal enhancement of the bilateral peripheral pulmonary arteries. There is no demonstrated pulmonary embolism. There is minimal atherosclerotic calcification of the aortic arch. There is no demonstrated aortic dissection. There is a small stable pericardial effusion. Normal mediastinum. Normal hilar regions. Normal visualized trachea and bronchi. Normal chest wall structures. Normal osseous structures. Normal visualized upper abdomen. CT/CTA Chest W/WO Contrast IMPRESSION: No demonstrated pulmonary embolism or arterial dissection. Minimal bibasilar scarring and/or atelectasis. Mild emphysematous changes. Electronically Signed: Janet Juarez MD at 23:30 EDT Tel , Service support ,
[2020-01-09 22:37] VITALS: BP 127/74; PULSE 77; RESP 22; O2SAT 93
[2020-01-09 23:51] VITALS: BP 127/84; PULSE 78; RESP 22; O2SAT 94
[2020-01-10 00:04] VITALS: BP 127/84; PULSE 79; RESP 16; O2SAT 94
== END 2020-01-10 00:13 | disposition home or self-care (01) ==
PROVIDERS: Emergency Provider Emergency Medicine; PCP Internal Medicine
DX: R60.0 Localized edema (principal); F11.20 Opioid dependence, uncomplicated; Z87.891 Personal history of nicotine dependence; Z86.711 Personal history of pulmonary embolism
CPT/HCPCS: 71045; 71275; 80048; 80307; 83880; 84484; 85025; 85379; 93005; 93970; 99284; Q9967; A4216

== ENCOUNTER → 2020-02-06 13:16 | Outpatient (CLI) | payer MEDICARE, MEDICAID, SELFPAY ==
[2020-02-06 13:14] VITALS: BMI 35.9
--- NOTE | 2020-02-06 13:17 | RAD_ITS ---
STUDY: X-RAY - RIGHT KNEE REASON FOR EXAM: Female, 54 years old. knee pain and medial swelling post op TECHNIQUE: 4 view(s) of the knee. COMPARISON: 2015 FINDINGS: Normal visualized distal femur. Normal visualized proximal fibula. Stable hyperdense likely cement in the lateral tibia. Normal proximal tibiofibular articulation. There is mild degenerative arthrosis of the medial femorotibial compartment. There is mild degenerative arthrosis of the lateral femorotibial compartment. There is mild degenerative arthrosis of the patellofemoral articulation. The soft tissue structures are unremarkable. RAD/Knee 4 or More Views IMPRESSION: Degenerative arthrosis. Electronically Signed: Woody Carvajal MD at 13:58 EDT , Service support ,
== END ==
PROVIDERS: PCP Internal Medicine; Referring Provider Orthopaedic Surgery; Visit Provider Orthopaedic Surgery
DX: M25.562 Pain in left knee (principal)
CPT/HCPCS: 73564

== ENCOUNTER → 2020-02-11 16:31 | Outpatient (CLI) | payer MEDICARE, MEDICAID, SELFPAY ==
[2020-02-06 13:14] VITALS: BMI 35.9
--- NOTE | 2020-02-11 16:32 | MRI_ITS ---
STUDY: MRI RIGHT KNEE REASON FOR EXAM: Medial pain, knee injury. TECHNIQUE: Standardized fat and water weighted pulse sequences were obtained in all 3 orthogonal planes. COMPARISON: MRI images 03/19/2015 and radiographs 02/06/2020. FINDINGS: There is peripheral subluxation of the medial meniscus without discrete medial meniscal tear. There is mild arthrosis of the medial femorotibial compartment with small marginal osteophytes and mild partial-thickness chondral loss of the medial femoral condyle (T2 sagittal image 19). Normal medial femoral condyle and tibial plateau. Normal medial collateral ligamentous complex (MCL). Normal distal semimembranosus, gracilis and semitendinosus tendons. There is a partial lateral meniscectomy without discrete recurrent lateral meniscal tear. There is arthrosis of the lateral femorotibial compartment with small marginal osteophytes and partial-thickness chondral loss especially at the posterior aspect of the compartment (T2 sagittal image 9) and a small subchondral cyst with very mild adjacent bone edema of the lateral femoral condyle. Status post subchondroplasty of the lateral tibial plateau. Normal proximal tibiofibular articulation. Normal lateral collateral (fibular) ligament. Normal popliteus tendon. Normal biceps femoris tendon. Normal anterior cruciate ligament (ACL). Normal posterior cruciate ligament (PCL). Normal congruent patellofemoral articulation. There is mild arthrosis of the patellofemoral compartment with mild partial-thickness chondral loss (T2 sagittal image 13). The reconstructed medial patellofemoral ligament appears intact (T2 axial images 12, 13). Normal visualized quadriceps tendon. Normal patellar tendon. Normal Hoffa''s fat pad. There is a small joint effusion. There is edema in the anterior subcutis adipose space. The otherwise visualized osseous structures are unremarkable. MRI/Lower Ext Joint Only (Routine) IMPRESSION: Partial lateral meniscectomy without demonstrated recurrent meniscal tear. Tricompartmental arthrosis. Small joint effusion. Electronically Signed: Jac Sanchez MD at 9:54 EDT Tel , Service support ,
== END ==
PROVIDERS: PCP Internal Medicine; Referring Provider Orthopaedic Surgery; Visit Provider Orthopaedic Surgery
DX: M23.90 Unspecified internal derangement of unspecified knee (principal)
CPT/HCPCS: 73721

== ENCOUNTER 2020-02-22 10:17 | Day surgery (SDC) | payer MEDICARE, MEDICAID, SELFPAY ==
[2020-01-21 11:29] VITALS: BMI 35.9
[2020-02-18 10:01] VITALS: BMI 35.9
[2020-02-22] VITALS (8 sets, daily range): BP systolic 81–131; BP diastolic 63–82; PULSE 73–86; RESP 16–18; TEMP 36.8–37.2; O2SAT 93–99; BMI 38.5
[2020-02-22] MEDS: Lactated Ringers 1,000 ML 100 ML IV (11:43)
--- NOTE | 2020-02-22 12:43 | RAD_ITS ---
STUDY: X-RAY - CERVICAL SPINE REASON FOR EXAM: Female, 54 years old. PAIN, 7 SPOTS, 7 INJECTIONS, 10 SECONDS, 1.94 MGY TECHNIQUE: 7 view(s) of the cervical spine were obtained. COMPARISON: None FINDINGS: Intraoperative imaging provided for bilateral cervical facet joint injection. RAD/Cerv Spine Obl/Flex/Ext Comp IMPRESSION: Intraoperative imaging provided for bilateral cervical facet joint injection. Electronically Signed: Vimal Beck, at 15:41 EDT , Service support ,
[2020-02-22] MEDS: Triamcinolone Acetonide 40 MG/ML Vial (12:46)
[2020-02-22] MEDS: Bupivacaine 0.25% 30 ML Vial (12:46)
== END 2020-02-22 14:13 | disposition home or self-care (01) ==
LOC: SDC 10:18 → AC 10:19
PROVIDERS: PCP Internal Medicine; Referring Provider Anesthesiology Pain Medicine; Visit Provider Anesthesiology Pain Medicine
PROC: 3E0U3BZ Introduction of Anesthetic Agent into Joints, Percutaneous Approach (ICD-10-PCS; CPT 64490; principal; 2020-02-22 11:55)
DX: M96.1 Postlaminectomy syndrome, not elsewhere classified (principal); M47.892 Other spondylosis, cervical region; G89.4 Chronic pain syndrome; J45.909 Unspecified asthma, uncomplicated; F17.200 Nicotine dependence, unspecified, uncomplicated; M51.17 Intervertebral disc disorders with radiculopathy, lumbosacral region; F31.9 Bipolar disorder, unspecified; F41.9 Anxiety disorder, unspecified; Z79.899 Other long term (current) drug therapy; Z79.891 Long term (current) use of opiate analgesic; Z86.718 Personal history of other venous thrombosis and embolism; Z86.711 Personal history of pulmonary embolism; Z79.51 Long term (current) use of inhaled steroids
CPT/HCPCS: 64490; 64491; 72052; 72114; J7120

== ENCOUNTER 2020-06-20 19:44 | Emergency (ER) | payer MEDICARE, MEDICAID, SELFPAY ==
[2020-02-25 07:52] VITALS: BMI 38.5
[2020-06-20 19:45] VITALS: BP 152/93; PULSE 84; RESP 20; TEMP 36.5; O2SAT 98; BMI 35.5
[2020-06-20 19:55] VITALS: BP 144/64; PULSE 84; RESP 18; O2SAT 96
--- NOTE | 2020-06-20 19:57 | EKG12_ITS ---
Test Reason : DYSRHYTHMIA Blood Pressure : / mmHG Vent. Rate : 075 BPM Atrial Rate : 075 BPM P-R Int : 172 ms QRS Dur : 086 ms QT Int : 394 ms P-R-T Axes : 050 000 033 degrees QTc Int : 439 ms Normal sinus rhythm Low voltage QRS Borderline ECG Confirmed by ED LANDIS, KIARRA ([id number]), slot editor LILIA SEXTON ([id number]) on 06/23/2020 1:18:39 PM Referred By: MIREILLE Confirmed By:KIARRA WARD MD
--- NOTE | 2020-06-20 19:58 | CT_ITS ---
STUDY: CTA CHEST REASON FOR EXAM: Female, 54 years old. R RIB/chest pain W/ DEEP BREATHS. STATES FEELS SIMILAR TO PRIOR PULMONARY EMBOLUS RADIATION DOSAGE (If Supplied By Facility): CTDIvol = ( 12.60 ) mGy, DLP = ( 561.94 ) mGycm TECHNIQUE: The examination was performed with the intravenous administration of IV 100mL Isovue-370. Post-processing of the angiographic images was performed, with multiplanar reformation and 3D reconstruction. Individualized dose optimization techniques were used for this CT. COMPARISON: 01/09/2020 FINDINGS: Motion artifact degrades anatomic detail. There are mild emphysematous changes. There is a stable subpleural 3.7 mm nodule within the right upper lobe. There is bibasilar atelectasis and/or scarring associated with minimal dependent consolidation within the right lower lobe. Normal enhancement of the main pulmonary artery and right and left pulmonary arteries. Normal enhancement of the bilateral peripheral pulmonary arteries. There is no demonstrated pulmonary embolism. There is atherosclerotic calcification of the aortic arch. There is no demonstrated aortic dissection. There is a pericardial effusion measuring up to 10.8 mm posteriorly. Normal mediastinum. Normal hilar regions. Normal visualized trachea and bronchi. Normal chest wall structures. Normal osseous structures. Normal visualized upper abdomen. CT/CTA Chest W/WO Contrast IMPRESSION: No demonstrated pulmonary embolism or arterial dissection. Right lower lobe dependent consolidation associated with bibasilar atelectasis and/or scarring. Pericardial effusion. Emphysema. Electronically Signed: Janet Juarez MD at 21:41 EST Tel , Service support ,
--- NOTE | 2020-06-20 20:03 | ED.VISSUMM ---
- ER Visit Summary Date of Service: 06/20/20 Chief Complaint: Chest pain History of Present Illness: The patient is a [address] Medrano. She reports she has right lower chest pain that began yesterday. It is a constant stabbing pain is 10 of 10 severity. Is worsened by movement or deep breaths. Is relieved by nothing. Reports has been nauseated and short of breath with this. She reports is similar to when she had a PE in the past. She is not anticoagulated currently. Patient complains of chills. She denies any cough. She denies sick contacts. She does wear a mask. She also complains of generalized weakness. Physical Examination: Vitals: Stable. Afebrile. General: Well-nourished and well-developed. Head: Normocephalic atraumatic. Neck: Supple, no lymphadenopathy. No JVD. Nontender. Cardiovascular: Regular rate and rhythm. No murmurs. Respiratory: No respiratory distress. Clear to auscultation bilaterally. Abdominal: Soft, nontender, nondistended, normal bowel sounds. No guarding, rebound, or peritoneal signs. Back: Nontender. Extremities: Nontender, no edema. Skin: Normal color, no rash. Neurologic: Alert and oriented ?3. Cranial nerves II through XII are intact. Normal strength and sensation. Psych: Normal affect. Test Results: EKG is sinus at 75 with no acute changes. Troponin is negative. Coags are normal. LFTs are normal. Chem-7 shows a chloride of 109 and creatinine of 1.06. CBC is normal. COVID-19 rapid antigen is negative. Clinical Impression(s) from Imaging Studies Chest CTA 06/20/20 19:58 IMPRESSION: No demonstrated pulmonary embolism or arterial dissection. Right lower lobe dependent consolidation associated with bibasilar atelectasis and/or scarring. Pericardial effusion. Emphysema. Electronically Signed: Janet Juarez MD at 21:41 EST Tel , Service support , Emergency Department Course and Treatment: Patient was treated morphine and Zofran IV. She is resting more comfortably. Patient continues to complain of pain. Her pulse ox decreased to 89% on room air while she was at rest. She was placed on 2 L nasal cannula her pulse ox is anywhere from 94 to 97%. I discussed the CT findings with the radiologist. She cannot state whether this is atelectasis or an infiltrate. I discussed with the patient. She denies cough. However, given the finding she was given a dose of doxycycline p.o. I discussed the patient with hypoxia that she needs to be admitted to the hospital. She is refusing this. She does not have oxygen at home. She understands that her oxygen level may go down further at home and that she could have worsening symptoms. Despite this she wants to sign out AGAINST MEDICAL ADVICE. Treatment Plan: Patient is already on morphine and oxycodone at home. I do not think giving her further opiate-based medications is warranted or in her best interest that she is already hypoxic. She is instructed to continue these. Follow-up with her primary care physician 1 to 2 days if not improving. Return to the emergency department for any worsening symptoms. Disposition: Left AGAINST MEDICAL ADVICE. Impression: 1. Atypical chest pain, uncertain cause. 2. Heart score of 2. 3. PARKER score of 0. 4. Hypoxia. 5. Left AGAINST MEDICAL ADVICE. This note was generated with [employer] software. It may contain incorrect words, spelling, and punctuation that were not noted in review of the chart prior to signing ED Disposition - Plan for ED Patient: Instructions: ED Chest Pain, Uncertain Cause Prescriptions: Doxycycline 100 mg PO BID #14 cap Prescription Printed Referrals: Florecita Medrano MD [Primary Care Provider] - As soon as possible
[2020-06-20] MEDS: Morphine 4 MG/ML Syringe IV (20:06)
[2020-06-20] MEDS: Ondansetron 4 MG/2 ML Vial IV (20:06)
[2020-06-20 20:27] LABS: Absolute Neutrophil Count 3.7 X10^3/uL (2.0-7.7); Basophil# 0.02 X10^3/uL; Basophil% 0.3 % (0-1); Eosinophil# 0.13 X10^3/uL; Eosinophils% 1.9 % (0-5); Hemoglobin 12.3 g/dL (12.0-15.0); Mean Corp Hgb Conc 31.5 g/dL (32-36); Mean Corpuscular Hgb 29.9 pg (27.0-32.0); Mean Corpuscular Volume 94.7 fL (81-99); Mean Platelet Vol. 10.1 fl (6.2-12.0); Monocyte# 0.57 X10^3/uL; Monocyte% 8.4 % (0-10); NRBC Flagged by Analyzer 0 % (0-5); Neutrophil # 3.74 X10^3/uL (2.7-7.7); Neutrophil % 55.3 % (47-70); Platelet Count 187 K/mm3 (150-450); RBC Distribution Width CV 12.3 % (11.6-14.6); RBC Distribution Width SD 43.1 fl (35.1-43.9); Red Blood Count 4.12 M/mm3 (4.2-5.4); White Blood Count 6.8 K/mm3 (4.4-11.0)
[2020-06-20 20:37] LABS: Prothrombin Time (Protime)PT. 12.9 SECONDS (11.7-14.9)
[2020-06-20 20:38] LABS: Partial Thromboplast Time 29.3 Seconds (24.1-36.2)
[2020-06-20 20:44] LABS: ALB/GLOB Ratio 1.2 RATIO (0.9-2.4); AST(SGOT) 15 U/L (15-37); Alanine Aminotransfer ALT/SGPT 36 U/L (13-56); Albumin, Serum 3.9 g/dL (3.2-5.0); Alkaline Phosphatase 74 U/L (45-117); Anion Gap 6 (5-15); BUN 9 mg/dL (7-18); BUN/Creat Ratio 8.5 RATIO (10-20); Calcium,Total 8.5 mg/dL (8.5-10.1); Chloride 109 mmol/L (98-107); Creatinine, Serum 1.06 mg/dL (0.55-1.02); EST Glomerular Filtration Rate 58 mL/min (>60); Est Glom Filt Rate - Afr Amer 70 mL/min (>60); Estimated Creatinine Clearance 58.12 ml/min; Globulin 3.2 g/dL (2.2-4.2); Glucose 92 mg/dL (74-106); Protein, Total 7.1 g/dL (6.4-8.2); Sodium Level 143 mmol/L (136-145)
[2020-06-20 21:12] VITALS: PULSE 72; RESP 14; O2SAT 91
[2020-06-20 21:50] VITALS: BP 116/90; PULSE 76; RESP 20; O2SAT 89; O2SAT 94
[2020-06-20] MEDS: Doxycycline 100 MG CAPSULE PO (22:18)
[2020-06-20 22:20] VITALS: BP 141/99
[2020-06-20 22:41] VITALS: BP 141/99; PULSE 75; RESP 16; O2SAT 92
--- NOTE | 2020-06-20 23:39 | ED.RN ---
called taxi for pt. son paying for ride. coffee and cookies given while pt waits.
== END 2020-06-21 00:31 | disposition home or self-care (01) ==
PROVIDERS: Emergency Provider Emergency Medicine; PCP Internal Medicine
DX: R07.89 Other chest pain (principal); R09.02 Hypoxemia; Z53.29 Procedure and treatment not carried out because of patient's decision for other reasons; F17.200 Nicotine dependence, unspecified, uncomplicated; Z86.711 Personal history of pulmonary embolism
CPT/HCPCS: 71275; 80053; 84484; 85025; 85610; 85730; 87426; 93005; 96374; 96375; 99285; Q9967; A4216; J2405

== ENCOUNTER 2020-06-27 06:39 | Day surgery (SDC) | payer MEDICARE, MEDICAID, SELFPAY ==
[2020-06-27] VITALS (7 sets, daily range): BP systolic 104–133; BP diastolic 65–75; PULSE 69–78; RESP 16; TEMP 36.2–36.7; O2SAT 92–95; BMI 39.2
[2020-06-27] MEDS: Lactated Ringers 1,000 ML 100 ML IV (07:55)
--- NOTE | 2020-06-27 08:10 | RAD_ITS ---
PROCEDURE: Right C6-C7 cervical block. DATE OF EXAMINATION: 06/27/2020. INDICATION: Female, 54 years old. Chronic neck pain. FLUOROSCOPY TIME (if supplied): (2 seconds) minutes/seconds. One image was submitted. Intraoperative imaging provided for right C6-C7 epidural block. RAD/Spine 1 View Any Level IMPRESSION: Intraoperative images are provided for right C6-C7 epidural block. Electronically Signed: Vimal Beck, at 14:18 EST , Service support ,
[2020-06-27] MEDS: Triamcinolone Acetonide 40 MG/ML Vial (08:25)
[2020-06-27] MEDS: Lidocaine 0.5% (50 ml) 50 ML Vial (08:25)
== END 2020-06-27 10:00 | disposition home or self-care (01) ==
LOC: SDC 07:22 → AC 07:22
PROVIDERS: PCP Internal Medicine; Referring Provider Anesthesiology Pain Medicine; Visit Provider Anesthesiology Pain Medicine
PROC: 3E0S3BZ Introduction of Anesthetic Agent into Epidural Space, Percutaneous Approach (ICD-10-PCS; CPT 62320; principal; 2020-06-27 08:05)
DX: M96.1 Postlaminectomy syndrome, not elsewhere classified (principal); Y83.9 Surgical procedure, unspecified as the cause of abnormal reaction of the patient, or of later complication, without mention of misadventure at the time of the procedure; G89.29 Other chronic pain; M54.2 Cervicalgia; J45.909 Unspecified asthma, uncomplicated; F17.200 Nicotine dependence, unspecified, uncomplicated; M54.5 Low back pain; Z79.899 Other long term (current) drug therapy; Z86.718 Personal history of other venous thrombosis and embolism; G35 Multiple sclerosis; Z79.51 Long term (current) use of inhaled steroids
CPT/HCPCS: 01992; 62321; 64490; 72020; J7120; J3490

== ENCOUNTER 2020-10-08 06:18 | Day surgery (SDC) | payer MEDICARE, MEDICAID, SELFPAY ==
[2020-06-27 07:49] VITALS: BMI 39.2
[2020-10-08] VITALS (8 sets, daily range): BP systolic 103–130; BP diastolic 75–109; PULSE 71–84; RESP 16; TEMP 36.1–36.3; O2SAT 92–95; BMI 42.1
[2020-10-08] MEDS: Lactated Ringers 1,000 ML 100 ML IV (07:10)
--- NOTE | 2020-10-08 08:19 | RAD_ITS ---
PROCEDURE: Right C6-C7 epidural injection. DATE OF EXAMINATION: 10/08/2020 INDICATION: Female, 54 years old. Chronic neck pain. FLUOROSCOPY TIME (if supplied): (13 seconds) minutes/seconds. One image was submitted. Intraoperative imaging provided for right C6-C7 epidural injection. RAD/Spine 1 View Any Level IMPRESSION: Intraoperative imaging provided for right C6-C7 epidural injection. Electronically Signed: Vimal Beck MD at 13:40 EDT , Service support ,
[2020-10-08] MEDS: Triamcinolone Acetonide 40 MG/ML Vial (08:24)
[2020-10-08] MEDS: Lidocaine 0.5% (50 ml) 50 ML Vial (08:24)
== END 2020-10-08 09:58 | disposition home or self-care (01) ==
LOC: SDC 06:22 → AC 06:23
PROVIDERS: PCP Internal Medicine; Referring Provider Anesthesiology Pain Medicine; Visit Provider Anesthesiology Pain Medicine
PROC: 3E0S3BZ Introduction of Anesthetic Agent into Epidural Space, Percutaneous Approach (ICD-10-PCS; CPT 62320; principal; 2020-10-08 07:40)
DX: M50.10 Cervical disc disorder with radiculopathy, unspecified cervical region (principal); M96.1 Postlaminectomy syndrome, not elsewhere classified; G89.4 Chronic pain syndrome; F17.200 Nicotine dependence, unspecified, uncomplicated; J45.909 Unspecified asthma, uncomplicated; Z79.899 Other long term (current) drug therapy; G35 Multiple sclerosis; K21.9 Gastro-esophageal reflux disease without esophagitis; Z86.718 Personal history of other venous thrombosis and embolism; F31.9 Bipolar disorder, unspecified; F41.9 Anxiety disorder, unspecified
CPT/HCPCS: 62321; 64490; 72020; J7120; J3490

== ENCOUNTER 2020-12-15 19:32 | Emergency (ER) | payer MEDICARE, MEDICAID, SELFPAY ==
[2020-10-08 06:52] VITALS: BMI 42.1
[2020-12-15 19:32] VITALS: BP 137/68; PULSE 86; RESP 15; TEMP 36.9; O2SAT 96; BMI 33.3
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
== END 2020-12-15 20:53 | disposition home or self-care (01) ==
PROVIDERS: Emergency Provider Emergency Medicine; PCP Internal Medicine
DX: S16.1XXA Strain of muscle, fascia and tendon at neck level, initial encounter (principal); V89.2XXA Person injured in unspecified motor-vehicle accident, traffic, initial encounter; Y92.410 Unspecified street and highway as the place of occurrence of the external cause; Z87.891 Personal history of nicotine dependence; Z98.1 Arthrodesis status
CPT/HCPCS: 72040; 99282

== ENCOUNTER 2021-01-23 10:42 | Day surgery (SDC) | payer MEDICARE, MEDICAID, SELFPAY ==
[2021-01-23 11:11] VITALS: BP 132/66; PULSE 73; RESP 14; TEMP 35.5; O2SAT 94; BMI 40.5
[2021-01-23] MEDS: Lactated Ringers 1,000 ML 100 ML IV ×2 (11:30→13:00)
[2021-01-23] MEDS: Lidocaine 0.5% (50 ml) 50 ML Vial (13:30)
[2021-01-23] MEDS: 0.9% Normal Saline (Pres. free 10 ML Vial (13:30)
[2021-01-23] MEDS: Triamcinolone Acetonide 40 MG/ML Vial (13:30)
--- NOTE | 2021-01-23 13:30 | RAD_ITS ---
STUDY: X-RAY - CERVICAL SPINE REASON FOR EXAM: Female, 55 years old. Block, epidural C6-7 TECHNIQUE: 1 view(s) of the cervical spine were obtained. COMPARISON: None FINDINGS: Intraoperative imaging provided for left C6-C7 epidural block. RAD/Spine 1 View Any Level IMPRESSION: Intraoperative imaging provided for left C6-C7 epidural block. Electronically Signed: Vimal Beck MD at 15:10 EDT , Service support ,
[2021-01-23 13:45] VITALS: BP 110/78; BP 132/66; PULSE 74; RESP 16; TEMP 36.4; O2SAT 96
[2021-01-23 13:50] VITALS: BP 132/66; BP 99/67; PULSE 75; RESP 16; O2SAT 94
[2021-01-23 13:55] VITALS: BP 106/64; BP 132/66; PULSE 70; RESP 16; O2SAT 92
[2021-01-23 14:00] VITALS: BP 132/66; BP 97/61; PULSE 69; RESP 16; TEMP 36.8; O2SAT 92
[2021-01-23 14:59] VITALS: BP 132/66
== END 2021-01-23 15:01 ==
LOC: SDC 10:48 → AC 10:48
PROVIDERS: PCP Internal Medicine; Referring Provider Anesthesiology Pain Medicine; Visit Provider Anesthesiology Pain Medicine
PROC: 3E0S3BZ Introduction of Anesthetic Agent into Epidural Space, Percutaneous Approach (ICD-10-PCS; CPT 62320; principal; 2021-01-23 12:25)
DX: M96.1 Postlaminectomy syndrome, not elsewhere classified (principal); Y83.8 Other surgical procedures as the cause of abnormal reaction of the patient, or of later complication, without mention of misadventure at the time of the procedure; Z79.899 Other long term (current) drug therapy; J45.909 Unspecified asthma, uncomplicated; M54.10 Radiculopathy, site unspecified; Z79.891 Long term (current) use of opiate analgesic; Z86.711 Personal history of pulmonary embolism; Z86.718 Personal history of other venous thrombosis and embolism; F17.200 Nicotine dependence, unspecified, uncomplicated
CPT/HCPCS: 01992; 62321; 64490; 72020; J7120; J3490

== ENCOUNTER 2021-05-27 11:37 | Day surgery (SDC) | payer MEDICARE, MEDICAID, SELFPAY ==
[2021-05-27] VITALS (7 sets, daily range): BP systolic 115–125; BP diastolic 64–88; PULSE 79–84; RESP 16; TEMP 35.5–36.2; O2SAT 91–94; BMI 40.9
[2021-05-27] MEDS: Lactated Ringers 1,000 ML 15 ML IV (12:30)
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
[2021-05-27] MEDS: Triamcinolone Acetonide 40 MG/ML Vial ×2 (14:18→14:20)
[2021-05-27] MEDS: 0.9% Normal Saline (Pres. free 10 ML Vial (14:18)
[2021-05-27] MEDS: Bupivacaine 0.25% 30 ML Vial (14:20)
== END 2021-05-27 15:18 ==
LOC: SDC 11:40 → AC 11:41
PROVIDERS: PCP Internal Medicine; Referring Provider Anesthesiology Pain Medicine; Visit Provider Anesthesiology Pain Medicine
PROC: 3E0U3BZ Introduction of Anesthetic Agent into Joints, Percutaneous Approach (ICD-10-PCS; CPT 64490; principal; 2021-05-27 13:25)
DX: M47.812 Spondylosis without myelopathy or radiculopathy, cervical region (principal); Z79.899 Other long term (current) drug therapy; J45.909 Unspecified asthma, uncomplicated; M50.30 Other cervical disc degeneration, unspecified cervical region; K21.9 Gastro-esophageal reflux disease without esophagitis; Z87.891 Personal history of nicotine dependence; G89.29 Other chronic pain; Z79.891 Long term (current) use of opiate analgesic; Z86.718 Personal history of other venous thrombosis and embolism
CPT/HCPCS: 64490; 64491; 72050; J7120; J3490

== ENCOUNTER 2021-07-03 07:36 | Day surgery (SDC) | payer MEDICARE, MEDICAID, SELFPAY ==
[2021-07-03] VITALS (7 sets, daily range): BP systolic 112–167; BP diastolic 68–93; PULSE 67–74; RESP 14–18; TEMP 35.9–36.1; O2SAT 92–98; BMI 40.1
[2021-07-03] MEDS: Lactated Ringers 1,000 ML 15 ML IV (08:23)
[2021-07-03] MEDS: Vancomycin IV 1,000 MG/200 ML BAG 200 MG IV (10:08)
--- NOTE | 2021-07-03 10:21 | RAD_ITS ---
STUDY: X-RAY - LUMBAR SPINE REASON FOR EXAM: Female, 55 years old. INSERTION PAIN PUMP TECHNIQUE: 1 view(s) of the lumbar spine were obtained. 40.4 seconds of fluoroscopy. COMPARISON: None FINDINGS: Intraoperative imaging provided for pain pump insertion. RAD/Spine 1 View Any Level IMPRESSION: Intraoperative imaging provided for pain pump insertion. Electronically Signed: Vimal Beck MD at 12:35 EST , Service support ,
[2021-07-03] MEDS: 0.9% Normal Saline (Pres. free 10 ML Vial ×2 (10:58→10:59)
[2021-07-03] MEDS: Bupivacaine 0.25% 30 ML Vial (11:00)
[2021-07-03] MEDS: Lidocaine 1% /Epi 1:100 (20ml) 20 ML Vial (11:00)
[2021-07-03] MEDS: oxyCODONE 5 MG Tablet 10 MG PO (13:25)
[2021-07-03] MEDS: Acetaminophen 325 MG Tablet 650 MG PO (13:26)
== END 2021-07-03 14:17 | disposition home or self-care (01) ==
LOC: SDC 07:38 → AC 07:39
PROVIDERS: Anesthesiology; PCP Internal Medicine; Referring Provider Anesthesiology Pain Medicine; Visit Provider Anesthesiology Pain Medicine
PROC: (CPT 62362; principal; 2021-07-03 09:25)
DX: Z45.49 Encounter for adjustment and management of other implanted nervous system device (principal); M96.1 Postlaminectomy syndrome, not elsewhere classified; M47.892 Other spondylosis, cervical region; M50.30 Other cervical disc degeneration, unspecified cervical region; G89.4 Chronic pain syndrome; F41.9 Anxiety disorder, unspecified; J45.909 Unspecified asthma, uncomplicated; F31.9 Bipolar disorder, unspecified; F17.200 Nicotine dependence, unspecified, uncomplicated; Z86.718 Personal history of other venous thrombosis and embolism; Z86.711 Personal history of pulmonary embolism; Z79.899 Other long term (current) drug therapy; Z79.891 Long term (current) use of opiate analgesic
CPT/HCPCS: 62362; 72020; 76000; 87426; 87635; C9803; J7120; U0005; J2274; J2405; J3490; U0003

== ENCOUNTER 2021-07-05 16:34 | Emergency (ER) | payer MEDICARE, MEDICAID, SELFPAY ==
[2021-07-05 16:36] VITALS: BP 152/69; PULSE 58; RESP 15; TEMP 36.7; O2SAT 94; BMI 41.3
[2021-07-05 16:52] VITALS: BP 123/50; PULSE 46; RESP 11; O2SAT 89
--- NOTE | 2021-07-05 16:53 | EKG12_ITS ---
Test Reason : NAUSEA Blood Pressure : / mmHG Vent. Rate : 060 BPM Atrial Rate : 060 BPM P-R Int : 186 ms QRS Dur : 100 ms QT Int : 466 ms P-R-T Axes : 057 002 031 degrees QTc Int : 466 ms Normal sinus rhythm with sinus arrhythmia Low voltage QRS Borderline ECG Confirmed by ED LANDIS, KIARRA ([id number]), editorial clerk QUAN BERMEO ([id number]) on 07/06/2021 11:33:50 AM Referred By: MAUDE Confirmed By:KIARRA WARD MD
[2021-07-05 16:54] VITALS: O2SAT 95
--- NOTE | 2021-07-05 16:58 | EDS_ITS ---
HPI History of Present Illness Chief Complaint: Nausea/Vomiting Detail of Chief Complaint: Nausea and vomiting and dizziness Informant: patient Narrative Narrative: Patient presents to the emergency department complaint of feeling poorly since around 3 AM. Patient states that she had a pain pump intrathecal placed by Dr. Herrera yesterday that is given her morphine with a dose of 2 mg daily intrathecally. Patient states she feels lightheaded and dizzy and just does not feel good. She presents via EMS. She denies any fevers. She denies chest pain. She denies abdominal pain. Prior similar symptoms: No PFSH PFSH Medical History (Updated 07/05/21 @ 21:[address] Bianca Borja, DO) Anxiety Bipolar disorder Chronic pain DVT (deep venous thrombosis) Easy bruising Former smoker Heart murmur History of echocardiogram History of edema Pulmonary embolism Shortness of breath on exertion Wears glasses Home Medications quetiapine 300 mg PO QHS 08/31/13 [History Last Taken 07/08/17] budesonide-formoterol 1 puff IH BID 01/04/17 [History Last Taken 09/12/19 1 PUFF] albuterol sulfate 1 - 2 puff INHALATION Q4H PRN PRN #1 inhaler 08/04/17 [Rx Last Taken 05/19/18 08:00] doxepin 25 mg PO QHS 05/18/18 [History Last Taken 09/12/19 10 MG] baclofen 10 mg PO BID 09/11/19 [History Last Taken 02/22/20 08:00] gabapentin 300 mg PO BID 09/11/19 [History Last Taken 09/12/19 300 MG] trihexyphenidyl 2 mg PO TID 09/11/19 [History Last Taken 09/12/19 2 MG] Ms Contin 15 mg PO BID 06/20/20 [History Last Taken 05/27/21 07:00] oxycodone 5 mg PO TID 06/20/20 [History Last Taken 05/27/21 07:00] ascorbic acid (vitamin C) [Vitamin C] 500 mg PO DAILY 06/26/21 [History Last Taken Unknown] [id number]-[id number]-FA-lutein [Centrum Silver Women] 1 tab PO DAILY 06/26/21 [History Last Taken Unknown] ondansetron 4 mg PO Q8H PRN PRN #10 tab 07/05/21 [Rx Last Taken Unknown] Allergy/AdvReac Type Severity Reaction Status Date / Time hydromorphone Allergy Anaphylaxis Verified 07/05/21 16:35 Penicillins [PCN] Allergy Anaphylaxis Verified 07/05/21 16:35 risperidone [From Risperdal] Allergy Unknown Verified 07/05/21 16:35 codeine AdvReac Upset Verified 07/05/21 16:35 Stomach Family History Other Cancer Diabetes Hypertension Surgical History History of appendectomy History of cholecystectomy History of hysterectomy History of surgery right knee mpfl Social History (Updated 02/25/20 @ 15:[address] Mario Mcdermott, ) Smoking Status: Former smoker ROS ROS ED Constitutional Constitutional ED: Reports systems reviewed and no addt'l complaints, except as documented; Denies body ache(s), change in weight or chills Eyes Eyes: Denies acute decrease in peripheral vision, change in vision, double vision or loss of vision ENT ENT ED: Reports none; Denies ear pain, lip swelling, loss taste/smell, neck pain, otalgia or sore throat Cardiovascular Cardiovascular: Reports none; Denies abdominal pain, chest pain with activity, leg edema, lightheadedness, palpitations, rapid heart rate or syncope Respiratory/Chest Respiratory/Chest: Reports none; Denies change in mental status, dry cough, dyspnea, hemoptysis, shortness of breath at rest or shortness of breath with exertion Gastrointestinal Gastrointestinal: Reports none, nausea and vomiting; Denies abdominal pain, change in stool character, diarrhea, hematemesis, hematochezia, melena or rectal bleeding Genitourinary Genitourinary ED: Reports none; Denies abdominal discomfort, anuria, dysuria, genital pain or polyuria Musculoskeletal Musculoskeletal: Reports none; Denies arthralgias, back pain, difficulty walking, extremity pain, muscle weakness or myalgias Integumentary Reports none; Denies abscess or rash Neurologic Neurologic: Reports none; Denies abnormal gait, confusion, focal weakness, frequent falls, headache(s), loss of vision, numbness, paresthesias, radicular pain, vertigo or weakness Psychiatric Psychiatric: Reports systems reviewed and no addt'l complaints, except as documented and none; Denies behavioral changes, confusion, difficulty concentrating, hallucinations, suicidal ideation, tactile hallucinations or visual hallucinations Endocrine Endocrinology: Denies none, cold intolerance, excessive sweating, fatigue or heat intolerance Hematologic/Lymphatic Hematologic/Lymphatic: Reports none; Denies anemia, easy bleeding or easy bruising Allergic/Immunologic Allergic/Immunologic ED: Denies as per HPI, none, lip swelling, mouth swelling, throat swelling, tongue swelling or hives EXAM Physical Exam Const Vital Signs: 07/05/21 16:36 07/05/21 16:52 07/05/21 16:54 Temperature 98.0 F Temperature Source Temporal Pulse Rate 58 L 46 L Respiratory Rate 15 11 L Blood Pressure 152/69 H 123/50 H Blood Pressure Mean 96 74 Pulse Ox 94 89 95 Oxygen Delivery Method Room Air Room Air Nasal Cannula Oxygen Flow Rate (L/min) 2 07/05/21 18:56 07/05/21 20:40 Temperature Temperature Source Pulse Rate 72 69 Respiratory Rate 14 17 Blood Pressure 135/71 H 136/73 H Blood Pressure Mean 92 94 Pulse Ox 98 96 Oxygen Delivery Method Nasal Cannula Room Air Oxygen Flow Rate (L/min) 2 Positive well nourished and well developed General Appearance ED: well developed and NAD HEENT Reports TM's clear and moist mucous membranes normocephalic and atraumatic; Negative for trauma or tenderness Tympanic Membrane ED: Yes TM's clear Eyes PERRL and EOMs intact bilaterally General Eye ED: Negative for pale conjunctiva or scleral icterus Neck no lymphadenopathy, supple and no JVD General: Negative for tenderness Chest Wall inspection of chest normal and palpation of chest normal Chest: Negative for tenderness Resp normal respiratory effort and clear to auscultation bilaterally Effort and Inspection: Negative for respiratory distress or pain with movement Auscultation: Negative for rhonchi, wheezes or diminished lung sounds Cardio regular rate, regular rhythm, S1 normal heart sound, S2 normal heart sound and no murmurs Peripheral Pulses: pulses 2+ throughout GI normal to inspection, nondistended, normoactive bowel sounds, soft to palpation, non-distended and no masses GI Narrative: Patient has recent surgical wound to right lower quadrant of the abdomen where the pain pump is located. No significant erythema or drainage noted. He has some mild diffuse tenderness over that area. Back/Spine no CVA tenderness and no thoracic nor lumbar tenderness Back/Spine Narrative: Patient has a fresh surgical wound to the lower lumbar region with no significant erythema or warmth noted. No drainage noted. Extremity normal to inspection General Extremety ED: Negative for edema General Extremity: Negative for edema Neuro oriented x3, CN's II-XII intact bilaterally, no sensory deficits noted and gait normal Sensorium / Orientation: awake, alert, oriented to person, oriented to place and oriented to time Motor Exam: strength 5/5 throughout and strength abnormal Psych mental status grossly normal Skin no rashes or lesions noted and no wounds MDM MDM MDM Narrative Medical decision making narrative: IV line established on arrival. Patient was given Zofran for nausea. I discussed case with who placed patient's intrathecal morphine pump yesterday. I was asked to run a magnet over the pump as this may turn it off which I did do. came in to evaluate the patient and it was noted that this particular pump does not turn off with the magnet however he was able to adjust the medication dose of morphine to half a milligram a day from 2 mg initially given. The surgeon believes that patient symptoms may be related more to low CSF pressure related to the procedure. I was asked to give the patient fluid boluses and antinausea medicine and he felt she could be discharged to home. Patient is comfortable with this plan. She received 2 L of fluid here and she has had no further vomiting after 2 doses of Zofran. Lab Data Attestation: I reviewed the patient's lab results. Labs: Laboratory Results - last 24 hr 07/05/21 07/05/21 07/05/21 17:10 17:10 17:10 WBC 6.7 RBC 4.13 L Hgb 12.4 Hct 37.7 MCV 91.3 MCH 30.0 MCHC 32.9 RDW Std Deviation 42.2 RDW Coeff of Reyes 12.8 Plt Count 142 L MPV 9.7 Immature Gran % (Auto) 0.300 Neut % (Auto) 69.0 Lymph % (Auto) 19.8 Villalba % (Auto) 10.1 H Eos % (Auto) 0.6 Baso % (Auto) 0.2 Absolute Neuts (auto) 4.6 Absolute Lymphs (auto) 1.32 Nucleated RBC % 0 Sodium 139 Potassium 3.9 Chloride 103 Carbon Dioxide 31.0 Anion Gap 5 BUN 12 Creatinine 0.92 Estim Creat Clear Calc 66.20 Est GFR (MDRD) Af Amer 82 Est GFR (MDRD) Non-Af 68 BUN/Creatinine Ratio 13.1 Glucose 117 H Calcium 8.8 Total Bilirubin 0.60 AST 16 ALT 35 Alkaline Phosphatase 62 Troponin I High Sens < 3 L Total Protein 7.3 Albumin 3.4 Globulin 3.9 Albumin/Globulin Ratio 0.9 Urine Color Urine Clarity Urine pH Ur Specific [place] Urine Protein Urine Glucose (UA) Urine Ketones Urine Occult Blood Urine Nitrite Urine Bilirubin Urine Urobilinogen Ur Leukocyte Esterase Urine RBC Urine WBC Ur Squamous Epith Cells Urine Bacteria Urine Mucus Urine Opiates Screen Urine Methadone Screen Ur Barbiturates Screen Ur Phencyclidine Scrn Ur Amphetamines Screen U Methamphetamin-MDMA U Benzodiazepines Scrn Urine Cocaine Screen U Cannabinoids Screen Ur Drug Screen Comment Ethyl Alcohol < 3.0 07/05/21 07/05/21 18:28 18:28 WBC RBC Hgb Hct MCV MCH MCHC RDW Std Deviation RDW Coeff of Reyes Plt Count MPV Immature Gran % (Auto) Neut % (Auto) Lymph % (Auto) Villalba % (Auto) Eos % (Auto) Baso % (Auto) Absolute Neuts (auto) Absolute Lymphs (auto) Nucleated RBC % Sodium Potassium Chloride Carbon Dioxide Anion Gap BUN Creatinine Estim Creat Clear Calc Est GFR (MDRD) Af Amer Est GFR (MDRD) Non-Af BUN/Creatinine Ratio Glucose Calcium Total Bilirubin AST ALT Alkaline Phosphatase Troponin I High Sens Total Protein Albumin Globulin Albumin/Globulin Ratio Urine Color Yellow Urine Clarity Clear Urine pH 5.0 Ur Specific [place] 1.030 Urine Protein 30 H Urine Glucose (UA) Normal Urine Ketones 150 A* Urine Occult Blood Negative Urine Nitrite Negative Urine Bilirubin Negative Urine Urobilinogen Normal Ur Leukocyte Esterase Negative Urine RBC 0 SEEN Urine WBC 0 SEEN Ur Squamous Epith Cells 0 SEEN Urine Bacteria 0 SEEN Urine Mucus RARE Urine Opiates Screen POSITIVE H Urine Methadone Screen NEGATIVE Ur Barbiturates Screen NEGATIVE Ur Phencyclidine Scrn NEGATIVE Ur Amphetamines Screen NEGATIVE U Methamphetamin-MDMA NEGATIVE U Benzodiazepines Scrn POSITIVE H Urine Cocaine Screen NEGATIVE U Cannabinoids Screen NEGATIVE Ur Drug Screen Comment Ethyl Alcohol EKG Initial EKG: Attestation: I personally reviewed and interpreted this EKG as follows: Comments: Sinus rhythm with a ventricular rate of 60 bpm with no acute ST segment changes Discharge Plan Triage Chief Complaint: Nausea/Vomiting ED Provider: Bianca Borja Dx/Rx/DC Orders Clinical Impression: Vomiting, Headache after spinal puncture Instructions: Nausea Vomit Control, ED Headache After Spinal Tap ... Prescriptions: New ondansetron [ondansetron] 4 MG tablet 4 mg PO Q8H PRN PRN (Reason: Nausea) Qty: 10 RF: 0 No Action quetiapine 300 MG tablet 300 mg PO QHS RF: 0 budesonide-formoterol 6 GM HFA aerosol inhaler 1 puff IH BID RF: 0 albuterol sulfate 1 INHALER inhaler 1 - 2 puff INHALATION Q4H PRN PRN (Reason: Wheezing) Qty: 1 RF: 0 doxepin 10 MG capsule 25 mg PO QHS RF: 0 baclofen 10 MG tablet 10 mg PO BID RF: 0 gabapentin 300 MG capsule 300 mg PO BID RF: 0 trihexyphenidyl 2 MG tablet 2 mg PO TID RF: 0 oxycodone 5 MG tablet 5 mg PO TID RF: 0 Ms Contin 15 mg PO BID RF: 0 ascorbic acid (vitamin C) [Vitamin C] 500 mg Tablet 500 mg PO DAILY RF: 0 Centrum Silver Women 8 mg iron-400 mcg-300 mcg Tablet 1 tab PO DAILY RF: 0 Primary Care Provider: Florecita Medrano Referrals: Kim Nicole MD [STAFF PHYSICIAN] - 1-2 Days if not improving Florecita Medrano MD [Primary Care Provider] - Disposition Disposition: Home, Self Care
[2021-07-05] MEDS: Ondansetron 4 MG/2 ML Vial IV ×2 (17:17→18:55)
[2021-07-05] MEDS: 0.9% Normal Saline 1,000 ML 1000 ML IV (17:17)
[2021-07-05 17:24] LABS: Absolute Lymphocyte Count 1.32 X10^3/uL (0.83-4.51); Absolute Neutrophil Count 4.6 X10^3/uL (2.0-7.7); Basophil# 0.01 X10^3/uL; Basophil% 0.2 % (0-1); Eosinophil# 0.04 X10^3/uL; Eosinophils% 0.6 % (0-5); Hematocrit 37.7 % (37-47); Hemoglobin 12.4 g/dL (12.0-15.0); Lymphocyte # 1.32 X10^3/ul (0.83-4.51); Lymphocyte % 19.8 % (19-41); Mean Corp Hgb Conc 32.9 g/dL (32-36); Mean Corpuscular Volume 91.3 fL (81-99); Mean Platelet Vol. 9.7 fl (6.2-12.0); Monocyte# 0.67 X10^3/uL; Monocyte% 10.1 % (0-10); NRBC Flagged by Analyzer 0 % (0-5); Platelet Count 142 K/mm3 (150-450); RBC Distribution Width CV 12.8 % (11.6-14.6); RBC Distribution Width SD 42.2 fl (35.1-43.9); Red Blood Count 4.13 M/mm3 (4.2-5.4); White Blood Count 6.7 K/mm3 (4.4-11.0)
[2021-07-05 17:35] LABS: Alcohol, Blood (Medical)-Serum < 3.0 mg/dL
[2021-07-05 17:42] LABS: ALB/GLOB Ratio 0.9 RATIO (0.9-2.4); AST(SGOT) 16 U/L (15-37); Alanine Aminotransfer ALT/SGPT 35 U/L (13-56); Albumin, Serum 3.4 g/dL (3.2-5.0); Alkaline Phosphatase 62 U/L (45-117); Anion Gap 5 (5-15); BUN 12 mg/dL (7-18); BUN/Creat Ratio 13.1 RATIO (10-20); Calcium,Total 8.8 mg/dL (8.5-10.1); Chloride 103 mmol/L (98-107); Creatinine, Serum 0.92 mg/dL (0.55-1.02); EST Glomerular Filtration Rate 68 mL/min (>60); Est Glom Filt Rate - Afr Amer 82 mL/min (>60); Globulin 3.9 g/dL (2.2-4.2); Glucose 117 mg/dL (74-106); Potassium 3.9 mmol/L (3.5-5.1); Protein, Total 7.3 g/dL (6.4-8.2); Sodium Level 139 mmol/L (136-145); Troponin-I HS < 3 pg/mL (3.0-54.0)
[2021-07-05 18:33] LABS: Bacteria 0 SEEN /hpf (None Seen); Red Blood Cells-Urine 0 SEEN /hpf (0-5); Squamous Epithelial Cells - UA 0 SEEN /hpf (5-10); White Blood Cells 0 SEEN /hpf (0-5)
[2021-07-05 18:41] LABS: Color, Urine Yellow (Yellow); Glucose, Dipstick Normal (Normal); Leukocyte Esterase-Dipstick Negative /ul (Negative); Nitrite-Dipstick Negative (Negative); Occult Blood-Urine Negative /ul (Negative); Protein-Dipstick 30 mg/dl (Negative); Urine Bilirubin Dipstick Negative (Negative); Urine Clarity Clear (Clear); Urine Urobilinogen Normal (Normal)
[2021-07-05 18:56] VITALS: BP 135/71; PULSE 72; RESP 14; O2SAT 98
[2021-07-05 19:04] LABS: Amphetamine Urine VISTA NEGATIVE (<1000 ng/mL); Barbiturate Urine VISTA NEGATIVE (< 200 ng/mL); Benzodiazepine Urine VISTA POSITIVE (< 200 ng/mL); Cocaine Urine VISTA NEGATIVE (< 300 ng/mL); Ecstacy Urine VISTA NEGATIVE (< 500 ng/mL); Methadone Urine VISTA NEGATIVE (< 300 ng/mL); PCP Urine VISTA NEGATIVE (< 25 ng/mL); THC Urine VISTA NEGATIVE (< 50 ng/mL); Vista UDS pH Range 4
[2021-07-05 19:06] LABS: Ketone-Dipstick 150 mg/dl (Negative)
[2021-07-05 19:10] LABS: Mucous, Urine RARE /hpf (<or=2+)
[2021-07-05] MEDS: 0.9% Normal Saline 1,000 ML 999 ML IV (19:49)
[2021-07-05 20:40] VITALS: BP 136/73; PULSE 69; RESP 17; O2SAT 96
== END 2021-07-05 21:32 | disposition home or self-care (01) ==
PROVIDERS: Emergency Provider Emergency Medicine; PCP Internal Medicine
DX: R11.2 Nausea with vomiting, unspecified (principal); R51.9 Headache, unspecified; F41.9 Anxiety disorder, unspecified; F31.9 Bipolar disorder, unspecified; Z86.718 Personal history of other venous thrombosis and embolism; Z79.899 Other long term (current) drug therapy; Z87.891 Personal history of nicotine dependence
CPT/HCPCS: 80053; 80307; 81001; 82077; 84484; 85025; 87040; 93005; 96361; 96374; 96376; 99285; J7030; A4216; J2405

== ENCOUNTER 2021-09-23 12:46 | Day surgery (SDC) | payer MEDICARE, MEDICAID, SELFPAY ==
[2021-09-23 13:27] VITALS: BP 128/79; PULSE 79; RESP 16; TEMP 36.9; O2SAT 97; BMI 40.5
[2021-09-23] MEDS: Lactated Ringers 1,000 ML 15 ML IV (13:40)
--- NOTE | 2021-09-23 14:30 | RAD_ITS ---
PROCEDURE: Bilateral C3-C4 and C4-C5 cervical facet block. DATE OF EXAMINATION: 09/23/2021. INDICATION: Female, 55 years old. Chronic neck pain. FLUOROSCOPY TIME (if supplied): (3 seconds) minutes/seconds. 2 images were obtained. RAD/Spine 1 View Any Level IMPRESSION: Intraoperative imaging provided for lateral C3-C4 and C4-C5 facet block. Electronically Signed: Vimal Beck MD at 9:04 EST ,
[2021-09-23] MEDS: Triamcinolone Acetonide 40 MG/ML Vial (14:51)
[2021-09-23] MEDS: Bupivacaine 0.25% 30 ML Vial (14:52)
[2021-09-23 15:31] VITALS: BP 109/90; BP 128/79; PULSE 74; RESP 14; TEMP 36.4; O2SAT 96
[2021-09-23 15:35] VITALS: BP 123/88; BP 128/79; PULSE 75; RESP 16; O2SAT 97
[2021-09-23 15:42] VITALS: BP 128/79; BP 130/84; PULSE 77; RESP 16; O2SAT 95
[2021-09-23 15:46] VITALS: BP 128/79; BP 136/80; PULSE 73; RESP 16; TEMP 36.6; O2SAT 98
[2021-09-23 16:12] VITALS: BP 128/79
== END 2021-09-23 23:59 | disposition home or self-care (01) ==
LOC: SDC 12:48 → AC 12:50
PROVIDERS: PCP Internal Medicine; Referring Provider Anesthesiology Pain Medicine; Visit Provider Anesthesiology Pain Medicine
PROC: 3E0U3BZ Introduction of Anesthetic Agent into Joints, Percutaneous Approach (ICD-10-PCS; CPT 64490; principal; 2021-09-23 14:25)
DX: M47.892 Other spondylosis, cervical region (principal); E11.9 Type 2 diabetes mellitus without complications; M54.2 Cervicalgia; J45.909 Unspecified asthma, uncomplicated; Z87.891 Personal history of nicotine dependence; M19.90 Unspecified osteoarthritis, unspecified site; I25.10 Atherosclerotic heart disease of native coronary artery without angina pectoris; G89.29 Other chronic pain; R01.1 Cardiac murmur, unspecified; F41.9 Anxiety disorder, unspecified; F32.A Depression, unspecified; Z79.899 Other long term (current) drug therapy; Z86.711 Personal history of pulmonary embolism; Z86.718 Personal history of other venous thrombosis and embolism; M47.812 Spondylosis without myelopathy or radiculopathy, cervical region
CPT/HCPCS: 64491; 01992; 64490; 72020; J7120

== ENCOUNTER 2022-01-28 14:41 | Emergency (ER) | payer MEDICARE, MEDICAID, SELFPAY ==
[2022-01-28 14:41] VITALS: BP 158/113; PULSE 78; RESP 14; TEMP 36.4; O2SAT 100; BMI 40.3
--- NOTE | 2022-01-28 15:32 | ED.VIS.BACK ---
HPI History of Present Illness Chief Complaint: Back Informant: patient Onset/Context/Timing Onset: Days Context: Gradual Onset Timing: Continuous Quality: Sharp Location: Buttock and Right Leg Current Severity: Moderate Maximum Severity: Moderate Worsened by: improves with Movement and Bending Relieved by: Remaining Still Associated Symptoms Associated Symptoms: Radiation to Right Leg; Negative for Numbness, Tingling, Radiation to Left Leg, Fever, Abdominal Pain, Dysuria, Unable to Ambulate, Unable to Transfer, Urinary Retention, Urinary Incontinence, Constipation or Fecal Incontinence Narrative Narrative: 56-year-old female history of chronic pain with prior neck surgery. History of PTSD, COPD and PE. Currently not on any anticoagulants. States she has had right hip and back pain for last 2 days. Along her buttock and right thigh. Denies any falls injury or trauma. No fever or chills. No prior lumbar surgery. No bowel or bladder incontinence. Prior similar symptoms: No Recent Illness/Hospitalization: No PFSH PFSH Medical History Anxiety Bipolar disorder Chronic pain DVT (deep venous thrombosis) Easy bruising Former smoker Heart murmur History of echocardiogram History of edema Pulmonary embolism Shortness of breath on exertion Wears glasses Home Medications quetiapine 300 mg tablet 300 mg PO QHS SLEEP 08/31/13 [History Last Taken 07/08/17] budesonide-formoterol HFA 160 mcg-4.5 mcg/actuation aerosol inhaler 1 puff IH BID COPD 01/04/17 [History Last Taken 09/12/19 1 PUFF] albuterol sulfate 90 mcg/actuation aerosol inhaler 1 - 2 puff inhalation Q4H PRN PRN Wheezing ##1 08/04/17 [Rx Last Taken 05/19/18 08:00] doxepin 10 mg capsule 25 mg PO QHS anxiety and depression 05/18/18 [History Last Taken 09/12/19 10 MG] baclofen 10 mg tablet 10 mg PO BID 09/11/19 [History Last Taken 02/22/20 08:00] gabapentin 300 mg capsule 300 mg PO BID 09/11/19 [History Last Taken 09/12/19 300 MG] trihexyphenidyl 2 mg tablet 2 mg PO TID jerks 09/11/19 [History Last Taken 09/12/19 2 MG] Ms Contin 15 mg PO BID 06/20/20 [History Last Taken 05/27/21 07:00] oxycodone 5 mg tablet 5 mg PO TID 06/20/20 [History Last Taken 05/27/21 07:00] ascorbic acid (vitamin C) 500 mg tablet (Vitamin C) 500 mg PO DAILY 06/26/21 [History Last Taken Unknown] multivit with twbbflcj-nrdh-EO-lutein 8 mg iron-400 mcg-300 mcg tablet (Centrum Silver Women) 1 tab PO DAILY 06/26/21 [History Last Taken Unknown] ondansetron 4 mg disintegrating tablet 4 mg PO Q8H PRN PRN Nausea #10 tabs 07/05/21 [Rx Last Taken Unknown] Allergy/AdvReac Type Severity Reaction Status Date / Time hydromorphone Allergy Anaphylaxis Verified 01/28/22 14:43 Penicillins [PCN] Allergy Anaphylaxis Verified 01/28/22 14:43 risperidone [From Risperdal] Allergy Unknown Verified 01/28/22 14:43 codeine AdvReac Upset Verified 01/28/22 14:43 Stomach Family History Other Cancer Diabetes Hypertension Surgical History History of appendectomy History of cholecystectomy History of hysterectomy History of surgery right knee mpfl Social History Smoking Status: Former smoker ROS ROS ED ROS Narrative No recent illness. Right lower back pain. Review of Systems ROS Unobtainable: Denies due to encephalopathy Constitutional Constitutional ED: Denies chills Eyes Eyes: Denies blurry vision ENT ENT ED: Denies ear pain Cardiovascular Cardiovascular: Denies chest pain Respiratory/Chest Respiratory/Chest: Denies dyspnea Gastrointestinal Gastrointestinal: Denies abdominal pain Genitourinary Genitourinary ED: Denies dysuria Musculoskeletal Musculoskeletal: Reports back pain; Denies arthralgias, myalgias or neck pain Integumentary Denies abscess Neurologic Neurologic: Denies headache(s) Psychiatric Psychiatric: Denies anxiety Endocrine Endocrinology: Denies cold intolerance Hematologic/Lymphatic Hematologic/Lymphatic: Denies easy bleeding Allergic/Immunologic Allergic/Immunologic ED: Denies mouth swelling, tongue swelling or urticaria EXAM Physical Exam Narrative Exam Narrative: 56-year-old female no acute distress vital signs stable afebrile. Blood pressure elevated at 158/113. H EENT exam unremarkable neck nontender. Lungs are clear. Equal and symmetrical. Heart regular rate and rhythm no murmur. Abdomen soft nontender. Back tenderness over the right SI joint. Positive straight leg raise on the right. Both lower extremities neurovascular intact with 5-5 motor strength. Dorsi plantarflexion. No cauda equina. No saddle anesthesia. Normal medial thigh sensation. Neurologic exam normal. Const Vital Signs: 01/28/22 14:41 Temperature 97.6 F L Temperature Source Temporal Pulse Rate 78 Respiratory Rate 14 Blood Pressure 158/113 H Blood Pressure Mean 128 Pulse Ox 100 Oxygen Delivery Method Room Air Positive well nourished and well developed; Negative for obese, cachectic, contractures or unkempt General Appearance ED: well developed; Negative for unkempt, cachectic or contractures Nutritional Appearance: Negative for cachectic or obese HEENT Reports moist mucous membranes; Denies dry mucous membranes Negative for trauma Mouth ED: No dry mucous membranes Mouth: No dry mucous membranes Eyes PERRL and EOMs intact bilaterally General Eye ED: Negative for pale conjunctiva or scleral icterus Neck no lymphadenopathy, supple and no JVD General: Negative for tenderness Thyroid: Negative for other Resp normal respiratory effort and clear to auscultation bilaterally Effort and Inspection: Negative for pain with movement Auscultation: Negative for rales, rhonchi or wheezes Cardio regular rate, regular rhythm, S1 normal heart sound, S2 normal heart sound and no murmurs Palpation: Negative for palpable S3 Rhythm: Negative for abnormal rhythm Bruits: Negative for other GI normal to inspection, nondistended, normoactive bowel sounds, soft to palpation, non-tender, non-distended and no masses Inspection: Negative for abdominal distention Auscultation: Negative for hyperactive bowel sounds Palpation: Negative for tender Back/Spine normal to inspection; Negative for no thoracic nor lumbar tenderness Back/Spine Narrative: Lower lumbar tenderness with primarily tenderness over the right SI joint. Positive straight leg raise on the right. Cervical Spine: Negative for cervical spine tenderness Thoracic Spine / Upper Back: Negative for paraspinal muscle tenderness Lumbar Spine / Lower Back: straight leg raise positive right; Negative for ROM limited or straight leg raise positive - left Extremity normal to inspection General Extremety ED: Negative for tenderness Neuro oriented x3 Sensorium / Orientation: alert; Negative for confused, lethargic or stuporous Motor Exam: strength 5/5 throughout Psych mental status grossly normal Appearance: Negative for unkempt Attitude: No agitated Mood & Affect: Negative for depressed Skin no rashes or lesions noted and no wounds General Skin Exam: Negative for jaundice Rashes: No rashes noted Trauma: Negative for abrasion Wounds: Negative for wounds noted MDM MDM MDM Narrative Medical decision making narrative: 56-year-old female prior neck surgery. Chronic pain management patient. Complaining of right hip and buttock pain consistent with sciatica. Patient be treated with IM Toradol. She has a morphine pump. She be discharged home to use anti-inflammatories. Ice to the area. Follow-up with her pain management doctor. No need for any emergent imaging at this time. Discharge Plan Triage Chief Complaint: Back ED Provider: Robin Pope Dx/Rx/DC Orders Clinical Impression: Sciatica, COPD (chronic obstructive pulmonary disease), PTSD (post-traumatic stress disorder) Instructions: ED Sciatica Prescriptions: No Action quetiapine 300 MG tablet 300 mg PO QHS Label Comments: sleep budesonide-formoterol 6 GM HFA aerosol inhaler 1 puff IH BID Label Comments: COPD albuterol sulfate 1 INHALER inhaler 1 - 2 puff INHALATION Q4H PRN PRN (Reason: Wheezing) Qty: 1 0RF doxepin 10 MG capsule 25 mg PO QHS baclofen 10 MG tablet 10 mg PO BID gabapentin 300 MG capsule 300 mg PO BID trihexyphenidyl 2 MG tablet 2 mg PO TID oxycodone 5 MG tablet 5 mg PO TID Ms Contin 15 mg PO BID ascorbic acid (vitamin C) [Vitamin C] 500 mg Tablet 500 mg PO DAILY Centrum Silver Women 8 mg iron-400 mcg-300 mcg Tablet 1 tab PO DAILY ondansetron [ondansetron] 4 MG tablet 4 mg PO Q8H PRN PRN (Reason: Nausea) Qty: 10 0RF Primary Care Provider: Florecita Medrano Referrals: Florecita Medrano MD [Primary Care Provider] - 1 Week if not improving Activity Restrictions/Additional Instructions: Motrin 600 mg 3 times a day for the next 3 to 5 days. Take it with food on your stomach. Ice to your right sciatic area. Follow-up with your doctor if not improving or your painter tumbling barrel. Disposition Disposition: Home, Self Care
[2022-01-28] MEDS: Ketorolac 60 MG/2 ML Vial IM (15:46)
== END 2022-01-28 16:08 | disposition home or self-care (01) ==
PROVIDERS: Emergency Provider Emergency Medicine; PCP Internal Medicine; Visit Provider Emergency Medicine
DX: M54.31 Sciatica, right side (principal); J44.9 Chronic obstructive pulmonary disease, unspecified; F43.10 Post-traumatic stress disorder, unspecified; G89.29 Other chronic pain; Z86.718 Personal history of other venous thrombosis and embolism; Z86.711 Personal history of pulmonary embolism; Z87.891 Personal history of nicotine dependence
CPT/HCPCS: 96372; 99282

== ENCOUNTER 2022-02-09 17:10 | Emergency (ER) | payer MEDICARE, MEDICAID, SELFPAY ==
[2022-02-09 17:10] VITALS: BP 147/93; PULSE 89; RESP 18; TEMP 36.6; O2SAT 92; BMI 40.3
--- NOTE | 2022-02-09 18:12 | ED.VIS.FALL ---
HPI HPI - Fall History of Present Illness Chief Complaint: Fall Informant: patient Occured/Mechanism Occurred: Today Fall down steps #: 1 flight Pain/Injury Location: Right chest, bilateral arms, bilateral legs, neck Pain Location: head, neck and chest Quality of Pain: Sharp Worsened by: Breathing Relieved by: Nothing Associated Symptoms Associated Symptoms: Positive for Parasthesias; Negative for Weakness, Loss of function, Inability to ambulate, Loss of consciousness or Amnesia Narrative Narrative: Patient presents after fall today. Patient states he fell approximately 20 minutes prior to arrival. Patient states she fell down a flight of stairs. Patient states she hit her head on the radiologist notes. Patient admits to some numbness and tingling. Patient was able to ambulate after the fall. Patient states she has pain in both arms, both legs, right ribs, and in her neck. Patient admits to some numbness and tingling. Patient denies any weakness. Patient states her pain is worse with breathing. Patient has a history of chronic pain and has an implantable pain pump. [facility] Medical History Anxiety Bipolar disorder Chronic pain DVT (deep venous thrombosis) Easy bruising Former smoker Heart murmur History of echocardiogram History of edema Pulmonary embolism Shortness of breath on exertion Wears glasses Home Medications quetiapine 300 mg tablet 300 mg PO QHS SLEEP 08/31/13 [History Last Taken 07/08/17] budesonide-formoterol HFA 160 mcg-4.5 mcg/actuation aerosol inhaler 1 puff IH BID COPD 01/04/17 [History Last Taken 09/12/19 1 PUFF] albuterol sulfate 90 mcg/actuation aerosol inhaler 1 - 2 puff inhalation Q4H PRN PRN Wheezing ##1 08/04/17 [Rx Last Taken 05/19/18 08:00] doxepin 10 mg capsule 25 mg PO QHS anxiety and depression 05/18/18 [History Last Taken 09/12/19 10 MG] baclofen 10 mg tablet 10 mg PO BID 09/11/19 [History Last Taken 02/22/20 08:00] gabapentin 300 mg capsule 300 mg PO BID 09/11/19 [History Last Taken 09/12/19 300 MG] trihexyphenidyl 2 mg tablet 2 mg PO TID peter 09/11/19 [History Last Taken 09/12/19 2 MG] Ms Contin 15 mg PO BID 06/20/20 [History Last Taken 05/27/21 07:00] oxycodone 5 mg tablet 5 mg PO TID 06/20/20 [History Last Taken 05/27/21 07:00] ascorbic acid (vitamin C) 500 mg tablet (Vitamin C) 500 mg PO DAILY 06/26/21 [History Last Taken Unknown] multivit with npmvhyvh-jizm-NP-lutein 8 mg iron-400 mcg-300 mcg tablet (Centrum Silver Women) 1 tab PO DAILY 06/26/21 [History Last Taken Unknown] ondansetron 4 mg disintegrating tablet 4 mg PO Q8H PRN PRN Nausea #10 tabs 07/05/21 [Rx Last Taken Unknown] Allergy/AdvReac Type Severity Reaction Status Date / Time hydromorphone Allergy Anaphylaxis Verified 02/09/22 17:13 Penicillins [PCN] Allergy Anaphylaxis Verified 02/09/22 17:13 risperidone [From Risperdal] Allergy Unknown Verified 02/09/22 17:13 codeine AdvReac Upset Verified 02/09/22 17:13 Stomach Family History Other Cancer Diabetes Hypertension Surgical History History of appendectomy History of cholecystectomy History of hysterectomy History of surgery right knee mpfl Social History Smoking Status: Former smoker ROS ROS ED Constitutional Constitutional ED: Denies chills or fever(s) Eyes Eyes: Denies blurry vision or change in vision ENT ENT ED: Denies rhinorrhea or sore throat Cardiovascular Cardiovascular: Reports chest pain; Denies palpitations Respiratory/Chest Respiratory/Chest: Denies cough or dyspnea Gastrointestinal Gastrointestinal: Denies nausea or vomiting Genitourinary Genitourinary ED: Denies dysuria or hematuria Musculoskeletal Musculoskeletal: Reports neck pain; Denies back pain Integumentary Denies abscess or rash Neurologic Neurologic: Denies headache(s) or weakness Allergic/Immunologic Allergic/Immunologic ED: Denies mouth swelling or urticaria EXAM Physical Exam Const Vital Signs: 02/09/22 17:10 02/09/22 18:30 Temperature 97.9 F Temperature Source Oral Pulse Rate 89 Respiratory Rate 18 Respiratory Effort Normal Non-Labored Respiratory Depth Normal Respiratory Pattern Normal Blood Pressure 147/93 H Blood Pressure Mean 111 Pulse Ox 92 Oxygen Delivery Method Room Air Room Air Positive well nourished, well developed and obese General Appearance ED: well developed and NAD Nutritional Appearance: obese HEENT Reports normocephalic Eyes PERRL and EOMs intact bilaterally Neck Neck Narrative: There is tenderness over the cervical paraspinal muscles. There is no midline tenderness. There is no bony crepitance or step-off. General: tenderness Chest Wall Chest Narrative: There is tenderness over the chest bilaterally, worse on the right. There is no bony crepitance or step-off. Resp normal respiratory effort and clear to auscultation bilaterally Effort and Inspection: pain with movement Cardio regular rate and regular rhythm GI non-tender and non-distended Palpation: soft Neuro oriented x3, CN's II-XII intact bilaterally, moves all extremities, no focal motor deficits and no sensory deficits noted Sensorium / Orientation: alert Motor Exam: strength 5/5 throughout Psych mental status grossly normal MDM MDM MDM Narrative Medical decision making narrative: CT scan of the brain was obtained. There is no acute intracranial abnormality. This was interpreted by the radiologist and reviewed by myself. CT scan of the cervical spine was obtained. There is no acute fracture. There is fusion of C3-C7. This was interpreted by the radiologist and reviewed by myself. X-rays of the bilateral ribs were obtained. There are 6 views. On my interpretation, there is no acute fracture. There is no pneumothorax. There is no acute cardiopulmonary process. Radiologist also interpreted the x-rays and agrees. Patient was advised of her findings. Patient was given a dose of Toradol here. Patient was advised that she does have a morphine pump and that we would be unable to give her any opiate pain medications because of this. Patient was instructed to follow-up with her primary care physician and pain management physician in 3 to 5 days. Patient understood and was agreeable with the plan. All questions were answered. Radiography Diagnostic Testing: Clinical Impression(s) from Imaging Studies Brain CT 02/09/22 18:16 IMPRESSION: No acute intracranial or calvarial abnormality. Electronically Signed: Cory Petersen DO at 19:45 EDT Reading Location ID and State: [facility] / MD Tel [phone], Service support , Cervical Spine CT 02/09/22 18:16 IMPRESSION: 1. Posterior fusion of C3-C7 with associated laminectomies. 2. Mild degenerative change without acute fracture or subluxation. Note: MRI is more sensitive than CT in detecting cord injury, ligamentous injury and epidural hematoma. If there is continued clinical concern for any of these entities, MRI should be considered. Electronically Signed: Cory Petersen DO at 19:49 EDT Reading Location ID and State: [employer] / MD Tel [phone], Service support , Ribs w/Chest X-Ray 02/09/22 18:45 IMPRESSION: RIBS: Normal x-ray examination of the bilateral ribs. CHEST: No acute cardiopulmonary disease or major interval change. Electronically Signed: Cory Petersen DO at 19:25 EDT Reading Location ID and State: [address] [place] [address] Tel [phone], Service support , Discharge Plan Triage Chief Complaint: Fall ED Provider: Dominic Yancey Dx/Rx/DC Orders Clinical Impression: Fall, Contusion of rib on right side, Head injury, closed, Acute cervical myofascial strain Instructions: ED Soft Tissue Contusion, ED Head Injury (Adult), ED Contusion, Rib Prescriptions: No Action quetiapine 300 MG tablet 300 mg PO QHS Label Comments: sleep budesonide-formoterol 6 GM HFA aerosol inhaler 1 puff IH BID Label Comments: COPD albuterol sulfate 1 INHALER inhaler 1 - 2 puff INHALATION Q4H PRN PRN (Reason: Wheezing) Qty: 1 0RF doxepin 10 MG capsule 25 mg PO QHS baclofen 10 MG tablet 10 mg PO BID gabapentin 300 MG capsule 300 mg PO BID trihexyphenidyl 2 MG tablet 2 mg PO TID oxycodone 5 MG tablet 5 mg PO TID Ms Contin 15 mg PO BID ascorbic acid (vitamin C) [Vitamin C] 500 mg Tablet 500 mg PO DAILY Centrum Silver Women 8 mg iron-400 mcg-300 mcg Tablet 1 tab PO DAILY ondansetron [ondansetron] 4 MG tablet 4 mg PO Q8H PRN PRN (Reason: Nausea) Qty: 10 0RF Primary Care Provider: Florecita Medrano Referrals: Kim Nicole MD [Med Staff - Active Staff] - 3-5 Days Florecita Medrano MD [Primary Care Provider] - 3-5 Days Disposition Disposition: Home, Self Care
--- NOTE | 2022-02-09 18:16 | CT_ITS ---
STUDY: CT CERVICAL SPINE WITHOUT CONTRAST REASON FOR EXAM: Female, 56 years old. 3. Pain. RADIATION DOSAGE (If Supplied By Facility): CTDIvol = ( 29.38 ) mGy, DLP = ( 647.50 ) mGycm TECHNIQUE: High resolution transaxial imaging was performed without contrast material. Sagittal and coronal images were reconstructed. Individualized dose optimization techniques were used for this CT. COMPARISON: 04/25/2017. FINDINGS: Normal craniovertebral junction. There are degenerative changes of the anterior atlantoaxial articulation. Normal odontoid process. There is reversal of the normal cervical lordosis. There is posterior fusion C3-C7 with associated laminectomies. The hardware is intact satisfactory position. C2-3: Normal endplates. Normal disc height and morphology. Facet and uncovertebral joint degenerative change. Normal central canal and intervertebral neuroforamina. C3-4: Normal endplates. Normal disc height and morphology. Secondary degenerative change. Normal central canal and intervertebral neuroforamina. C4-5: Endplate spondylosis.. Marked loss of disc height. Facet and uncovertebral joint degenerative change. Normal central canal. Narrowing of the bilateral intervertebral neuroforamina. C5-6: Endplate spondylosis with loss of disc height. Facet and uncovertebral joint degenerative change. Normal central canal. Narrowing of the bilateral intervertebral neuroforamina. C6-7: Endplate spondylosis. Loss of disc height. Facet and uncovertebral joint degenerative change. Normal central canal. Narrowing of the bilateral intervertebral neuroforamina. C7-T1: Normal endplates. Normal disc height and morphology. Normal central canal and intervertebral neuroforamina. Normal visualized soft tissue structures. CT/Spine Cervical without Contras IMPRESSION: 1. Posterior fusion of C3-C7 with associated laminectomies. 2. Mild degenerative change without acute fracture or subluxation. Note: MRI is more sensitive than CT in detecting cord injury, ligamentous injury and epidural hematoma. If there is continued clinical concern for any of these entities, MRI should be considered. Electronically Signed: Cory Petersen DO at 19:49 EDT Reading Location ID and State: [address] [place] [address] Tel [phone], Service support ,
--- NOTE | 2022-02-09 18:16 | CT_ITS ---
STUDY: CT BRAIN WITHOUT CONTRAST REASON FOR EXAM: Female, 56 years old. Injury. Pain. RADIATION DOSAGE (If Supplied By Facility): CTDIvol = ( 44.99 ) mGy, DLP = ( 812.98 ) mGycm TECHNIQUE: Transaxial CT imaging of the brain was performed without administration of intravenous contrast material. Individualized dose optimization techniques were used for this CT. COMPARISON: No relevant priors. FINDINGS: Normal soft tissue structures. Normal calvarium. Normal size ventricles and extra-axial spaces for the patient''s age. Normal white matter tracts of the cerebral hemispheres. Normal basal ganglia and thalami. Normal brainstem. Normal cerebellum. There is no intracranial hemorrhage. There are no findings of an acute ischemic infarction. Normal visualized paranasal sinuses. CT/Brain/Head without Contrast IMPRESSION: No acute intracranial or calvarial abnormality. Electronically Signed: Cory Petersen DO at 19:45 EDT ,
--- NOTE | 2022-02-09 18:45 | RAD_ITS ---
STUDY: X-RAY - BILATERAL RIBS WITH CHEST REASON FOR EXAM: Female, 56 years old. Trauma. Fell down stairs. Bilateral anterior rib pain. TECHNIQUE - RIBS: 5 view(s) of the ribs. TECHNIQUE - CHEST: Single PA view of the chest. COMPARISON: 01/09/2020 FINDINGS - RIBS : Normal visualized ribs without a demonstrated fracture. FINDINGS - CHEST: The lungs are clear and expanded. There is no demonstrated pleural abnormality. Normal size heart. Normal mediastinum and ilda. Normal visualized pulmonary arteries. Normal visualized aortic arch and descending thoracic aorta. There are diffuse degenerative changes of the visualized thoracic spine. Again seen is posterior fusion of the cervical spine. Normal visualized ribs, clavicles, and shoulders. There is no demonstrated abnormality of the visualized soft tissue structures of the upper abdomen. RAD/Ribs Roly Min 4V w/PA Chest IMPRESSION: RIBS: Normal x-ray examination of the bilateral ribs. CHEST: No acute cardiopulmonary disease or major interval change. Electronically Signed: Cory Petersen DO at 19:25 EDT ,
[2022-02-09] MEDS: Ketorolac 60 MG/2 ML Vial IM (20:38)
[2022-02-09 20:43] VITALS: BP 129/79; PULSE 89; RESP 17; O2SAT 99
== END 2022-02-09 20:50 | disposition home or self-care (01) ==
PROVIDERS: Emergency Provider Emergency Medicine; PCP Internal Medicine; Visit Provider Emergency Medicine
DX: S20.211A Contusion of right front wall of thorax, initial encounter (principal); S09.90XA Unspecified injury of head, initial encounter; S16.1XXA Strain of muscle, fascia and tendon at neck level, initial encounter; E66.9 Obesity, unspecified; W10.9XXA Fall (on) (from) unspecified stairs and steps, initial encounter; Z87.891 Personal history of nicotine dependence; Z86.718 Personal history of other venous thrombosis and embolism; Z86.711 Personal history of pulmonary embolism
CPT/HCPCS: 70450; 71111; 72125; 96372; 99282

== ENCOUNTER 2022-04-16 12:10 | Day surgery (SDC) | payer MEDICARE, MEDICAID, SELFPAY ==
[2022-04-16 12:40] VITALS: BP 156/87; PULSE 80; RESP 16; TEMP 36.3; O2SAT 95; BMI 42.0
[2022-04-16] MEDS: Lactated Ringers 1,000 ML 15 ML IV (12:45)
[2022-04-16] MEDS: Lidocaine 0.5% (50 ml) 50 ML Vial (14:24)
[2022-04-16] MEDS: 0.9% Normal Saline (Pres. free 10 ML Vial (14:45)
[2022-04-16] MEDS: Triamcinolone Acetonide 40 MG/ML Vial (14:45)
[2022-04-16] MEDS: Lidocaine 1% (20 ml mdv) 20 ML Vial (14:45)
--- NOTE | 2022-04-16 14:45 | RAD_ITS ---
STUDY: X-RAY - CERVICAL SPINE REASON FOR EXAM: Female, 56 years old. BLOCK CERVICAL EPIDURAL TECHNIQUE: 1 view(s) of the lumbar spine were obtained during epidural injection. 5.9 seconds fluoroscopy. Estimated dose 1.67 mGy COMPARISON: None FINDINGS: Contrast is seen at C7 with in the epidural space. RAD/Spine 1 View Any Level IMPRESSION: Contrast is seen at C7 with in the epidural space. Electronically Signed: Savi Lam MD at 0:01 EDT ,
[2022-04-16 15:01] VITALS: BP 127/89; BP 156/87; PULSE 80; RESP 18; TEMP 37.1; O2SAT 92
[2022-04-16 15:05] VITALS: BP 113/68; BP 156/87; PULSE 77; RESP 18; O2SAT 94
[2022-04-16 15:10] VITALS: BP 156/87; BP 96/69; PULSE 77; RESP 18; O2SAT 94
[2022-04-16 15:14] VITALS: BP 135/68; BP 156/87; RESP 18; TEMP 36.9; O2SAT 93
[2022-04-16 15:51] VITALS: BP 156/87
== END 2022-04-16 15:53 | disposition home or self-care (01) ==
LOC: SDC 12:12 → AC 12:13
PROVIDERS: PCP Internal Medicine; Referring Provider Anesthesiology Pain Medicine; Visit Provider Anesthesiology Pain Medicine
PROC: 3E0S3BZ Introduction of Anesthetic Agent into Epidural Space, Percutaneous Approach (ICD-10-PCS; CPT 62320; principal; 2022-04-16 14:10)
DX: M54.12 Radiculopathy, cervical region (principal); F31.9 Bipolar disorder, unspecified; M54.13 Radiculopathy, cervicothoracic region; M50.30 Other cervical disc degeneration, unspecified cervical region; M50.20 Other cervical disc displacement, unspecified cervical region; F17.210 Nicotine dependence, cigarettes, uncomplicated; Z86.718 Personal history of other venous thrombosis and embolism
CPT/HCPCS: 62321; 64490; 72020; J7120; J3490

== ENCOUNTER 2024-08-27 11:49 | Emergency (ER) | payer MEDICAID, MEDICARE, SELFPAY ==
[2024-08-27] VITALS (15 sets, daily range): BP systolic 106–143; BP diastolic 69–110; PULSE 64–82; RESP 12–20; TEMP 36.7–37.1; O2SAT 91–99; BMI 42.4
--- NOTE | 2024-08-27 12:23 | EKG12_ITS ---
Test Reason : CP Blood Pressure : */* mmHG Vent. Rate : 80 BPM Atrial Rate : 80 BPM P-R Int : 188 ms QRS Dur : 78 ms QT Int : 404 ms P-R-T Axes : 53 -18 42 degrees QTcB Int : 465 ms Sinus rhythm with occasional Premature ventricular complexes Low voltage QRS Borderline ECG Confirmed by Nando Butterfield ([id number]), telegraph editor QUAN BERMEO ([id number]) on 08/28/2024 10:06:04 AM Referred By: BB/ Confirmed By: Nando Butterfield
--- NOTE | 2024-08-27 12:24 | ED.VIS.CHEST ---
HPI History of Present Illness Chief Complaint: Chest Pain Informant: patient Narrative Narrative: 58-year-old female was at local intermediate seeing her mother who has dementia and is actively dying, her brother was there who has been estranged and she was happy that her brother got to see her mother before she dies, and while she was talking with her mother who does not have conversations due to severe dementia, she started having some right-sided chest discomfort. Another episode spread to the middle of her chest. She has had a couple of these now, and each of lasted several minutes. She states that the intermediate she told somebody, they checked her blood pressure was 196 systolic, later it was 162 before sending her here to the ER. She states the pain is gone but during our evaluation she started having the right sided discomfort again without any other symptoms. [facility] Medical History Wears glasses Bipolar disorder Anxiety Pulmonary embolism Easy bruising Shortness of breath on exertion History of edema History of echocardiogram Heart murmur Chronic pain Former smoker DVT (deep venous thrombosis) Home Medications ?Medication ?Instructions ?Recorded ?Last Taken ?Type quetiapine 300 mg tablet 300 mg PO QHS SLEEP 08/31/13 07/08/17 History budesonide-formoterol HFA 160 1 puff IH BID COPD 01/04/17 09/12/19 History mcg-4.5 mcg/actuation aerosol 1 PUFF inhaler albuterol sulfate 90 mcg/actuation 1 - 2 puff inhalation Q4H PRN PRN 08/04/17 05/19/18 08:00 Rx aerosol inhaler Wheezing ##1 doxepin 10 mg capsule 25 mg PO QHS anxiety and depression 05/18/18 09/12/19 History 10 MG baclofen 10 mg tablet 10 mg PO BID 09/11/19 02/22/20 08:00 History gabapentin 300 mg capsule 300 mg PO BID 09/11/19 09/12/19 History 300 MG trihexyphenidyl 2 mg tablet 2 mg PO TID jerks 09/11/19 09/12/19 History 2 MG Ms Contin 15 mg PO BID 06/20/20 05/27/21 07:00 History [id number] 8 mg-folic 400 1 tab PO DAILY 06/26/21 Unknown History mcg-K 50 mcg-lutein 300 mcg tablet (Centrum Silver Women) ondansetron 4 mg disintegrating 4 mg PO Q8H PRN PRN Nausea #10 tabs 07/05/21 Unknown Rx tablet amlodipine 2.5 mg tablet 2.5 mg PO DAILY 08/27/24 Unknown History citalopram 10 mg tablet 10 mg PO DAILY 08/27/24 Unknown History Allergy/AdvReac Type Severity Reaction Status Date / Time hydromorphone Allergy Anaphylaxis Verified 08/27/24 12:01 Penicillins (PCN) Allergy Anaphylaxis Verified 08/27/24 12:01 risperidone (From Risperdal) Allergy Unknown Verified 08/27/24 12:01 codeine AdvReac Upset Verified 08/27/24 12:01 Stomach Family History Other Cancer Diabetes Hypertension Surgical History History of surgery right knee mpfl History of hysterectomy History of appendectomy History of cholecystectomy Social History household members: none current occupational status: employed Smoking Status: Former smoker ROS ROS ED Constitutional Constitutional ED: Denies chills or fever(s) Eyes Eyes: Denies change in vision or diplopia ENT ENT ED: Denies rhinorrhea or sore throat Cardiovascular Cardiovascular: Reports as per HPI and chest pain; Denies palpitations or radiating jaw, neck or arm pain Respiratory/Chest Respiratory/Chest: Denies cough or dyspnea Gastrointestinal Gastrointestinal: Denies abdominal pain, diarrhea, nausea or vomiting Genitourinary Genitourinary ED: Denies dysuria or hematuria Musculoskeletal Musculoskeletal: Reports back pain; Denies neck pain Integumentary Denies abscess or rash Neurologic Neurologic: Denies headache(s), paresthesias or weakness Psychiatric Psychiatric: Reports anxiety; Denies suicidal thoughts EXAM Physical Exam Const Vital Signs: 08/27/24 11:56 08/27/24 11:58 08/27/24 12:12 Temperature 98.1 F Temperature Source Oral Pulse Rate 75 73 Respiratory Rate 14 13 Respiratory Effort Normal Non-Labored Blood Pressure 143/76 H Blood Pressure Mean 98 Pulse Ox 95 93 Oxygen Delivery Method Room Air 08/27/24 12:15 08/27/24 12:30 08/27/24 12:39 Temperature Temperature Source Pulse Rate 82 73 Respiratory Rate 20 H 16 Respiratory Effort Blood Pressure 138/73 H 126/69 H Blood Pressure Mean 91 86 Pulse Ox 95 97 Oxygen Delivery Method Room Air 08/27/24 12:50 08/27/24 13:00 08/27/24 13:00 Temperature Temperature Source Pulse Rate 76 79 Respiratory Rate 14 16 Respiratory Effort Blood Pressure 143/76 H 139/110 H 139/110 H Blood Pressure Mean 98 119 120 Pulse Ox 98 95 Oxygen Delivery Method Room Air 08/27/24 13:02 08/27/24 13:15 08/27/24 13:30 Temperature Temperature Source Pulse Rate 73 76 73 Respiratory Rate 12 14 13 Respiratory Effort Blood Pressure 118/100 H 128/88 H Blood Pressure Mean 107 99 Pulse Ox 93 93 93 Oxygen Delivery Method 08/27/24 13:51 08/27/24 14:00 08/27/24 14:15 Temperature Temperature Source Pulse Rate Respiratory Rate Respiratory Effort Blood Pressure 133/110 H 126/81 H Blood Pressure Mean 116 94 Pulse Ox 95 91 92 Oxygen Delivery Method 08/27/24 14:31 Temperature Temperature Source Pulse Rate Respiratory Rate Respiratory Effort Blood Pressure 106/94 H Blood Pressure Mean 99 Pulse Ox Oxygen Delivery Method Positive well nourished, well developed and obese General Appearance ED: well developed and NAD Nutritional Appearance: obese HEENT Reports moist mucous membranes normocephalic and atraumatic Eyes PERRL and EOMs intact bilaterally Neck full ROM and supple Resp normal respiratory effort and clear to auscultation bilaterally Cardio regular rate and regular rhythm Heart Sounds: murmur systolic II/ soft left sternal border Peripheral Pulses: pulses 2+ throughout GI non-tender and non-distended Auscultation: normoactive bowel sounds Palpation: soft Back/Spine no CVA tenderness Back/Spine Narrative: Tender distal lumbosacral spine. No step-off. Able to range. No other spinal tenderness. General Back: other FROM Extremity normal to inspection General Extremety ED: Negative for edema, pulses abnormal or tenderness General Extremity: Negative for edema or pulses abnormal Neuro oriented x3, CN's II-XII intact bilaterally and no sensory deficits noted Sensorium / Orientation: awake and alert Motor Exam: strength 5/5 throughout Psych Psych Narrative: A little anxious. Tearful at times when talking about her mother. Tangential. Skin no rashes or lesions noted and no wounds Heart Score History: Slightly/Non-Suspicious ECG: Normal Age: >45 - <65 years Risk Factors: 1 or 2 Risk Factors Troponin: </= Normal Limit Score: 2 MDM MDM MDM Narrative Medical decision making narrative: Patient becomes very tangential at times and trying to obtain history, answering with responses to questions that are nonsensical, separate topics. I asked her if she had been drinking today, she states he does not drink alcohol, I am sorry, I am just bipolar. She is having chest discomfort right now so I am ordering her a GI cocktail while doing the rest of the workup to evaluate for possible acute coronary syndrome with a delta troponin measurement, her initial EKG is normal on my interpretation. I think this is relatively low risk for being acute coronary syndrome, if the 2 troponin measurements are normal, I suspect we will be able to discharge her home. Patient felt much better after GI cocktail, she has 2 sequential high-sensitivity troponin measurements in the single digits, 4 and 4, for a delta of 0. Her risk is low, her blood pressures have been stable, given all of this and comfortable discharging her home with close outpatient follow-up. We did do a chest x-ray 2 views of my interpretation are normal. She also said incidentally that she fell a couple days ago after slipping on ice and hurt her low back, so I obtained some lumbar spine x-rays 3 views of my interpretation are normal and radiology is in agreement, she was reassured about that. Lab Data Attestation: I reviewed the patient's lab results. Labs: Laboratory Results - last 24 hr 08/27/24 08/27/24 12:09 14:43 WBC 6.3 RBC 4.43 Hgb 13.0 Hct 41.2 MCV 93.0 MCH 29.3 MCHC 31.6 L RDW Std Deviation 44.6 H RDW Coeff of Reyes 13.1 Plt Count 156 MPV 10.4 Immature Gran % (Auto) 0.300 Neut % (Auto) 53.9 Lymph % (Auto) 31.3 [place] % (Auto) 10.9 H Eos % (Auto) 3.3 Baso % (Auto) 0.3 Absolute Neuts (auto) 3.4 Absolute Lymphs (auto) 1.98 Nucleated RBC % 0 Sodium 140 Potassium 3.5 Chloride 107 Carbon Dioxide 29.0 Anion Gap 5 BUN 13 Creatinine 1.34 H Estim Creat Clear Calc 61.65 Est GFR (MDRD) Af Amer 53 L Est GFR (MDRD) Non-Af 43 L BUN/Creatinine Ratio 9.7 L Glucose 94 Calcium 9.3 Troponin I High Sens 4 4 Radiography Diagnostic Testing: Clinical Impression(s) from Imaging Studies Chest X-Ray 08/27/24 13:00 IMPRESSION: No acute cardiopulmonary process. Reading Location: [facility] Lumbar Spine X-Ray 08/27/24 13:00 IMPRESSION: No acute fracture. Reading Location: [facility] Rhythm Strip Rhythm Strip: Sinus Rhythm Rate: 80 Ectopy: None EKG Initial EKG: Attestation: I personally reviewed and interpreted this EKG as follows: Interpretation: Sinus Rhythm and No Acute Injury Pattern Comments: Nml axis & intervals; nml EKG Discharge Plan Triage Chief Complaint: Chest Pain ED Provider: Francis Richards Dx/Rx/DC Orders Clinical Impression: Chest pain due to GERD, Episode of hypertension, Acute lumbar myofascial strain Instructions: ED Chest Pain, Noncardiac Prescriptions: No Action quetiapine 300 MG tablet 300 mg PO QHS Patient Comments: sleep budesonide-formoterol 6 GM HFA aerosol inhaler 1 puff IH BID Patient Comments: COPD albuterol sulfate 1 INHALER inhaler 1 - 2 puff INHALATION Q4H PRN PRN (Reason: Wheezing) Qty: 1 0RF doxepin 10 MG capsule 25 mg PO QHS baclofen 10 MG tablet 10 mg PO BID gabapentin 300 MG capsule 300 mg PO BID trihexyphenidyl 2 MG tablet 2 mg PO TID Ms Contin 15 mg PO BID Centrum Silver Women 8 mg iron-400 mcg-300 mcg Tablet 1 tab PO DAILY ondansetron [ondansetron] 4 MG tablet 4 mg PO Q8H PRN PRN (Reason: Nausea) Qty: 10 0RF amlodipine 2.5 mg tablet 2.5 mg PO DAILY citalopram 10 mg tablet 10 mg PO DAILY Primary Care Provider: Florecita Medrano Referrals: Florecita Medrano MD [Primary Care Provider] - 1 Week Print Language: Lao Disposition Disposition: Home, Self Care
[2024-08-27] MEDS: Mag Hydrox/Al Hydrox/Simeth 30 ML UDC PO (12:31)
[2024-08-27] MEDS: Lidocaine 2% Viscous15 ML UDC 15 ML PO (12:31)
[2024-08-27 12:39] LABS: Absolute Lymphocyte Count 1.98 X10^3/uL (0.83-4.51); Absolute Neutrophil Count 3.4 X10^3/uL (2.0-7.7); Basophil# 0.02 X10^3/uL; Basophil% 0.3 % (0-1); Eosinophil# 0.21 X10^3/uL; Eosinophils% 3.3 % (0-5); Hematocrit 41.2 % (37-47); Lymphocyte # 1.98 X10^3/ul (0.83-4.51); Lymphocyte % 31.3 % (19-41); Mean Corp Hgb Conc 31.6 g/dL (32-36); Mean Corpuscular Hgb 29.3 pg (27.0-32.0); Mean Platelet Vol. 10.4 fl (6.2-12.0); Monocyte# 0.69 X10^3/uL; Monocyte% 10.9 % (0-10); NRBC Flagged by Analyzer 0 % (0-5); Neutrophil % 53.9 % (47-70); Platelet Count 156 K/mm3 (150-450); RBC Distribution Width CV 13.1 % (11.6-14.6); RBC Distribution Width SD 44.6 fl (35.1-43.9); Red Blood Count 4.43 M/mm3 (4.2-5.4); White Blood Count 6.3 K/mm3 (4.4-11.0)
[2024-08-27 12:55] LABS: Anion Gap 5 (5-15); BUN 13 mg/dL (7-18); BUN/Creat Ratio 9.7 RATIO (10-20); Calcium,Total 9.3 mg/dL (8.5-10.1); Chloride 107 mmol/L (98-107); Creatinine, Serum 1.34 mg/dL (0.55-1.02); EST Glomerular Filtration Rate 43 mL/min (>60); Est Glom Filt Rate - Afr Amer 53 mL/min (>60); Estimated Creatinine Clearance 61.65 ml/min; Glucose 94 mg/dL (74-106); Potassium 3.5 mmol/L (3.5-5.1); Sodium Level 140 mmol/L (136-145); Troponin-I HS (w/2H Reflex) 4 pg/mL (3.0-54.0)
--- NOTE | 2024-08-27 13:00 | RAD_ITS ---
EXAM: XR Lumbosacral Spine, 2 or 3 Views CLINICAL INDICATION: TECHNIQUE: Frontal and lateral views of the lumbar spine and sacrum. COMPARISON: No relevant prior studies available. FINDINGS: VERTEBRAE: Mild dextroconvex curvature of the mid lumbar spine. No acute fracture. SACRUM/COCCYX: Unremarkable as visualized. No acute fracture. DISC SPACES: No acute findings. No significant narrowing. SOFT TISSUES: Unremarkable. RAD/Lumbar Spine 2 or 3 Views IMPRESSION: No acute fracture. Reading Location: [facility]
--- NOTE | 2024-08-27 13:00 | RAD_ITS ---
EXAM: XR Chest, 2 Views CLINICAL INDICATION: TECHNIQUE: Frontal and lateral views of the chest. COMPARISON: No relevant prior studies available. FINDINGS: LUNGS AND PLEURAL SPACES: Unremarkable. No consolidation. No pneumothorax. HEART: Unremarkable. No cardiomegaly. MEDIASTINUM: Unremarkable. Normal mediastinal contour. BONES/JOINTS: Unremarkable. No acute fracture. RAD/Chest PA and Lateral IMPRESSION: No acute cardiopulmonary process. Reading [facility]
[2024-08-27 14:33] LABS: Reflex Troponin-HS? (from REC) Y
[2024-08-27 15:21] LABS: Troponin-I HS 4 pg/mL (3.0-54.0)
--- NOTE | 2024-08-27 20:18 | CM.ED ---
Social Work SW met with patient to determine if any resources were needed, patient stated that she has been with her mother at the [facility] as her mother is actively passing. Patient was erratic during conversation, jumping topics quickly, becoming tearful them laughing, and had a difficult time answering questions. Patient did deny need for any resources. Emotional support provided. Rika Sheffield, GEOLOGICAL SCIENCE TEACHER, [employer]TON [employer]ER
== END 2024-08-27 16:08 | disposition home or self-care (01) ==
PROVIDERS: Emergency Provider Emergency Medicine; PCP Internal Medicine; Visit Provider Emergency Medicine
DX: R07.9 Chest pain, unspecified (principal); F31.9 Bipolar disorder, unspecified; I10 Essential (primary) hypertension; K21.9 Gastro-esophageal reflux disease without esophagitis; S39.012A Strain of muscle, fascia and tendon of lower back, initial encounter; Z87.891 Personal history of nicotine dependence; Z79.51 Long term (current) use of inhaled steroids; Z79.899 Other long term (current) drug therapy; X58.XXXA Exposure to other specified factors, initial encounter; Z86.718 Personal history of other venous thrombosis and embolism
CPT/HCPCS: 71046; 72100; 80048; 84484; 85025; 93005; 99285; A4216